=== PATIENT | female | born 1960 | race Caucasian/White ===

== ENCOUNTER → 2018-11-30 08:25 | Outpatient (CLI) | payer OTHER, SELFPAY ==
--- NOTE | 2018-11-30 | DI.RAD.S_ITS ---
PROCEDURE: XR HAND RT 2V INDICATIONS: bilateralHAND SWELLING TECHNIQUE: 2 views of the hand(s) acquired. COMPARISON: [facility], CR, XR HAND LT 2V, 11/30/2018, 8:52. FINDINGS: Bones: No fractures or dislocations. Carpal bones are normally aligned. No suspicious bony lesions. Minimal degenerative changes of the first through fifth interphalangeal joints. Soft tissues: No suspicious soft tissue calcifications. No radiopaque foreign body identified. IMPRESSION: No acute osseous abnormality of the right hand. Dictated by: Moiz Palomo M.D. on 12/01/2018 at 9:25 Approved by: Moiz Palomo M.D. on 12/01/2018 at 9:26
--- NOTE | 2018-11-30 | DI.RAD.S_ITS ---
PROCEDURE: XR HAND LT 2V INDICATIONS: bilateral HAND SWELLING TECHNIQUE: 2 views of the hand(s) acquired. COMPARISON: [facility], CR, XR HAND RT 2V, 11/30/2018, 8:52. FINDINGS: Bones: No fractures or dislocations. Carpal bones are normally aligned. No suspicious bony lesions. Minimal degenerative changes of the first through fifth interphalangeal joints and first carpometacarpal joint. Soft tissues: No suspicious soft tissue calcifications. No radiopaque foreign body. IMPRESSION: No acute osseous abnormality of the left hand. Dictated by: Moiz Palomo M.D. on 12/01/2018 at 9:23 Approved by: Moiz Palomo M.D. on 12/01/2018 at 9:25
[2018-11-30 08:41] LABS: Bacteria Urine None Seen; RBC Urine None Seen (0-5/HPF); WBC Urine None Seen (0-5/HPF)
[2018-11-30 09:21] LABS: Alanine Aminotransferase 28 IU/L (9-52); Albumin 4.5 g/dL (3.5-5.0); Albumin Globulin Ratio 1.4 (1.0-2.8); Alkaline Phosphatase 70 U/L (38-126); Aspartate Aminotransferase 30 IU/L (14-36); Bilirubin Total 0.5 mg/dL (0.2-1.3); Blood Urea Nitrogen 20 mg/dL (7-17); C-Reactive Protein Quant 0.6 mg/dL (<1.0); Calcium 9.3 mg/dL (8.4-10.2); Carbon Dioxide 27 mmol/L (22-32); Chloride 100 mmol/L (98-107); Estimated Glomerular Filt Rate > 60.0 mL/min (>60); Globulin 3.2 g/dL (1.7-4.1); Glucose 95 mg/dL (70-100); HEMOLYSIS < 15 (0-50); Potassium 3.9 mmol/L (3.4-5.1); Sodium 137 mmol/L (137-145); Total Protein 7.7 g/dL (6.3-8.2)
[2018-11-30 09:47] LABS: Rheumatoid Factor < 8.6 IU/mL (<12.0)
[2018-11-30 11:11] LABS: Appearance Urine UA CLEAR; Bilirubin Urine UA NEGATIVE (NEGATIVE); Color Urine UA YELLOW; Glucose Urine UA NEGATIVE (Negative); Ketones Urine UA NEGATIVE (NEGATIVE); Leukocyte Esterase Urine UA NEGATIVE (NEGATIVE); Nitrite Urine UA NEGATIVE (Negative); Occult Blood Urine UA NEGATIVE (Negative); Protein Urine UA NEGATIVE (Negative); Specific Gravity Urine UA <=1.005 (1.000-1.035); Urobilinogen Urine UA 0.2 E.U./dL (0.2)
[2018-11-30 11:20] LABS: Culture Indicated Urine Cult Not Indicated
[2018-11-30 17:25] LABS: TSH w/ Reflex to FT4 3.57 uIU/mL (0.47-4.68)
[2018-12-02 18:02] LABS: ANA Screen, IFA Negative (Negative)
== END ==
PROVIDERS: Family Provider Internal Medicine Hematology & Oncology; PCP Internal Medicine; Visit Provider Internal Medicine
DX: D47.3 Essential (hemorrhagic) thrombocythemia (principal); Z12.4 Encounter for screening for malignant neoplasm of cervix; M25.542 Pain in joints of left hand; R23.1 Pallor; R30.0 Dysuria; I10 Essential (primary) hypertension; R35.0 Frequency of micturition
CPT/HCPCS: 36415; 73120; 80053; 81001; 84443; 86038; 86140; 86200; 86430; 87086

== ENCOUNTER → 2018-12-02 15:51 | Outpatient (CLI) | payer OTHER, SELFPAY ==
[2018-12-02 18:00] LABS: Add Manual Diff / Slide Review NO; Basophils Absolute Auto 0 /uL (0-100); Eosinophils Absolute Auto 0 /uL (0-450); Eosinophils Percent Auto 0.9 % (2-4); Hematocrit 38.1 % (36-46); Hemoglobin 12.7 g/dL (12.0-16.0); Lymphocytes Absolute Auto 1300 /uL (1100-4500); Lymphocytes Percent Auto 27.7 % (25-40); Mean Corpuscular HGB Conc 33.4 % (30-36); Mean Corpuscular Hemoglobin 36.7 PG (26-34); Mean Corpuscular Volume 109.8 fL (80-100); Monocytes Absolute Auto 500 /uL (0-900); Monocytes Percent Auto 10.3 % (3-14); Neutrophils Absolute Auto 2700 /uL (1500-7000); Neutrophils Percent Auto 60.1 % (50-75); Platelet Count 463 X10^3/uL (150-400); Red Blood Cell Count 3.47 X10^6/uL (4.0-5.2); White Blood Cell Count 4.6 X10^3/uL (4.5-11.0)
== END ==
PROVIDERS: Family Provider Internal Medicine Hematology & Oncology; PCP Internal Medicine; Visit Provider Internal Medicine
DX: M25.542 Pain in joints of left hand (principal); D47.3 Essential (hemorrhagic) thrombocythemia; R30.0 Dysuria; I10 Essential (primary) hypertension; E03.9 Hypothyroidism, unspecified; R35.0 Frequency of micturition
CPT/HCPCS: 85025

== ENCOUNTER → 2019-01-08 16:00 | Outpatient (CLI) | payer OTHER, SELFPAY ==
[2019-01-08 17:49] LABS: Vitamin D 25 Hydroxy (D3) 43.5 ng/mL (30.0-100.0)
[2019-01-08 18:36] LABS: Folate 9.3 ng/mL (2.76-20.0); Vitamin B12 770 pg/mL (239-931)
[2019-01-11 00:36] LABS: Albumin 4.3 g/dL (3.8-4.8); Alpha 1 Globulin 0.3 g/dL (0.2-0.3); Alpha 2 Globulin 0.6 g/dL (0.5-0.9); Beta 1 Globulin 0.4 g/dL (0.4-0.6); Gamma Globulin 1.2 g/dL (0.8-1.7); Protein, Total 7.1 g/dL (6.1-8.1)
== END ==
PROVIDERS: Family Provider Internal Medicine Hematology & Oncology; PCP Internal Medicine; Visit Provider Internal Medicine
DX: Z86.39 Personal history of other endocrine, nutritional and metabolic disease (principal); E55.9 Vitamin D deficiency, unspecified; D75.89 Other specified diseases of blood and blood-forming organs; M79.2 Neuralgia and neuritis, unspecified
CPT/HCPCS: 36415; 82306; 82607; 82746; 84155; 84165

== ENCOUNTER → 2020-04-23 14:42 | Outpatient (ROUT) | payer OTHER, SELFPAY ==
[2020-04-23 14:53] LABS: Hemoglobin 13.3 g/dL (12.0-16.0); Mean Corpuscular Hemoglobin 36.4 PG (26-34); Mean Corpuscular Volume 106.9 fL (80-100); Platelet Count 524 X10^3/uL (150-400); Red Blood Cell Count 3.65 X10^6/uL (4.0-5.2); Red Cell Distribution Width 14.9 % (11.6-14.8); White Blood Cell Count 3.7 X10^3/uL (4.5-11.0)
[2020-04-23 15:09] LABS: Alanine Aminotransferase 28 IU/L (<35); Albumin 4.5 g/dL (3.5-5.0); Albumin Globulin Ratio 1.5 (1.0-2.8); Alkaline Phosphatase 77 U/L (38-126); Aspartate Aminotransferase 33 IU/L (14-36); BUN Creatinine Ratio 27.8 (6-22); Bilirubin Total 0.4 mg/dL (0.2-1.3); Blood Urea Nitrogen 22 mg/dL (7-17); Calcium 9.6 mg/dL (8.4-10.2); Carbon Dioxide 28 mmol/L (22-32); Chloride 102 mmol/L (98-107); Estimated Glomerular Filt Rate > 60.0 mL/min (>60); Glucose 123 mg/dL (80-110); HEMOLYSIS < 15 (0-50); Potassium 4.6 mmol/L (3.4-5.1); Sodium 141 mmol/L (137-145); Total Protein 7.5 g/dL (6.3-8.2)
[2020-04-23 15:11] LABS: Erythrocyte Sedimentation Rate 15 MM/HR (0-20)
[2020-04-23 15:15] LABS: Neutrophils Absolute Manual 2664 /uL (3000-5900); RBC Morphology Normal Morphology; Total Cells Counted 100
[2020-04-23 15:31] LABS: C-Reactive Protein Quant < 0.5 mg/dL (<1.0)
[2020-04-26 11:13] LABS: Vitamin B12 506 pg/mL (239-931)
[2020-04-29 16:32] LABS: Amylase 77 U/L (30-110); Lipase 135 U/L (23-300)
== END ==
PROVIDERS: Family Provider Internal Medicine Hematology & Oncology; PCP Internal Medicine; Visit Provider Internal Medicine
DX: R10.2 Pelvic and perineal pain (principal)
CPT/HCPCS: 80053; 82150; 82607; 83690; 85025; 85651; 86140; 87086

== ENCOUNTER → 2020-05-20 09:41 | Outpatient (CLI) | payer OTHER, SELFPAY ==
[2020-05-20 12:17] LABS: Alanine Aminotransferase 28 IU/L (<35); Albumin 4.5 g/dL (3.5-5.0); Albumin Globulin Ratio 1.4 (1.0-2.8); Alkaline Phosphatase 70 U/L (38-126); Amylase 80 U/L (30-110); Aspartate Aminotransferase 33 IU/L (14-36); BUN Creatinine Ratio 29.1 (6-22); Bilirubin Total 0.7 mg/dL (0.2-1.3); Blood Urea Nitrogen 23 mg/dL (7-17); Calcium 9.7 mg/dL (8.4-10.2); Carbon Dioxide 29 mmol/L (22-32); Chloride 102 mmol/L (98-107); Estimated Glomerular Filt Rate > 60.0 mL/min (>60); Globulin 3.2 g/dL (1.7-4.1); Glucose 86 mg/dL (80-110); HEMOLYSIS < 15 (0-50); Lipase 139 U/L (23-300); Potassium 5.1 mmol/L (3.4-5.1); Sodium 138 mmol/L (137-145); Total Protein 7.7 g/dL (6.3-8.2)
[2020-05-20 13:00] LABS: Vitamin B12 612 pg/mL (239-931)
== END ==
PROVIDERS: Family Provider Internal Medicine Hematology & Oncology; PCP Internal Medicine; Referring Provider Internal Medicine; Visit Provider Internal Medicine
DX: R53.83 Other fatigue (principal)
CPT/HCPCS: 36415; 80053; 82150; 82607; 83690

== ENCOUNTER → 2020-05-24 08:02 | Outpatient (CLI) | payer OTHER, SELFPAY ==
--- NOTE | 2020-05-24 | DI.MRI.S_ITS ---
PROCEDURE: MR LUMBAR SPINE WO CON INDICATIONS: Radiculopathy lumbosacral TECHNIQUE: Noncontrast sagittal T1 spin echo and T2 fast echo, sagittal STIR, axial T1 and T2 fast spin echo through the lumbar spine. In cases with scoliosis, additional coronal T2 fast spin echo may be performed. COMPARISON: None. FINDINGS: Image quality: Excellent. Alignment and Curvature: There is normal bony alignment. Bone Marrow: Mild reactive endplate changes noted adjacent to the L5-S1 disc. No acute vertebral body compression fractures. Spinal Cord: Conus medullaris terminates at the L1-L2 disc level. Visualized cord demonstrates normal signal and size. Paraspinous Soft Tissues: No paravertebral masses. L1-L2: Loss of disc signal and slight loss of disc height. Mild, diffuse disc bulge. No central stenosis. Small right foraminal disc protrusion. Mild right neural foraminal narrowing. No neural compression. L2-L3: Loss of disc signal and slight loss of disc height. Mild, diffuse disc bulge. No central stenosis. No neural foraminal narrowing. No neural compression. L3-L4: Loss of disc signal. Mild, diffuse disc bulge. Small right foraminal disc protrusion. Mild narrowing of the central canal. Moderate right and mild left neural foraminal narrowing. No neural compression. L4-L5: Loss of disc signal. Mild, diffuse disc bulge. Small left foraminal disc protrusion. Mild narrowing of the central canal. Mild left neural foraminal narrowing. No neural compression. L5-S1: Loss of disc signal. Mild, diffuse disc bulge. No central stenosis. Moderate to severe right and mild left neural foraminal narrowing with slight compression of the exiting right L5 nerve root. Fissure noted in the posterior annulus. IMPRESSION: 1. Multilevel degenerative disease. 2. Mild L3-L4 and L4-L5 central canal narrowing. 3. Moderate to severe right and mild left L5-S1 neural foraminal narrowing. Moderate right and mild left L3-L4 neural foraminal narrowing. Mild right L1-L2 neural foraminal narrowing. Mild left L4-L5 neural foraminal narrowing. 4. Slight compression of the exiting right L5 nerve root secondary to right L5-S1 neural foraminal narrowing. 5. L5-S1 disc annulus fissure. Dictated by: Lorraine Tidwell MD, PhD on 05/24/2020 at 13:58 Approved by: Lorraine Tidwell MD, PhD on 05/24/2020 at 14:22
--- NOTE | 2020-05-24 09:24 | DI.CT.S_ITS ---
PROCEDURE: CT ABDOMEN PELVIS W CON INDICATIONS: Pelvic and perineal pain TECHNIQUE: After the administration of oral and intravenous contrast, 5 mm thick sections acquired from the diaphragms to the symphysis. 5 mm thick coronal and sagittal reformats were performed. For radiation dose reduction, the following was used: automated exposure control, adjustment of mA and/or kV according to patient size. COMPARISON: [facility], CT, ABDOMEN/PELVIS WITH CONTRAST, 09/10/2009, 14:40. FINDINGS: Image quality: Excellent. ABDOMEN: Lung bases: Lung bases are clear. Heart size is normal. Solid organs: Liver is normal in size and enhancement. Gallbladder is unremarkable. Biliary system is non-dilated. Pancreas enhances normally. Spleen is normal in size and enhancement. No adrenal nodules. Kidneys are normal in size and enhancement, without hydronephrosis. Peritoneum and bowel: Stomach, and small bowel are unremarkable. The sigmoid and left colon are decompressed. There is probable mild diffuse wall thickening of this portion of the colon. No free fluid or air. Nodes and vessels: No retroperitoneal or mesenteric adenopathy. Aorta and inferior vena cava are normal in caliber. Miscellaneous: No ventral hernias. PELVIS: Genitourinary: Bladder wall thickness is normal. Miscellaneous: No inguinal hernias or adenopathy. Calcified uterine fibroid. Bones: No suspicious bony lesions. No vertebral body compression fractures. IMPRESSION: 1. The sigmoid and left colon are decompressed with probable mild diffuse wall thickening. Consider infectious versus inflammatory colitis. Direct visualization may be helpful. Dictated by: Neri Dangelo M.D. on 05/24/2020 at 9:41 Approved by: Neri Dangelo M.D. on 05/24/2020 at 9:46
== END ==
PROVIDERS: Family Provider Internal Medicine Hematology & Oncology; PCP Internal Medicine; Referring Provider Internal Medicine; Visit Provider Internal Medicine
DX: R10.2 Pelvic and perineal pain (principal); R10.12 Left upper quadrant pain; M51.16 Intervertebral disc disorders with radiculopathy, lumbar region; M48.07 Spinal stenosis, lumbosacral region; M48.061 Spinal stenosis, lumbar region without neurogenic claudication
CPT/HCPCS: 72148; 74177; Q9967

== ENCOUNTER → 2020-09-27 07:54 | Outpatient (CLI) | payer OTHER, SELFPAY ==
--- NOTE | 2020-09-27 07:58 | DI.US.S_ITS ---
PROCEDURE: US PELVIC COMPLETE INDICATIONS: LEFT LOWER QUADRANT PAIN TECHNIQUE: Real-time scanning was performed of the pelvic organs, with image documentation. Additional endovaginal scanning was necessary due to incomplete visualization of the adnexal and endometrial structures by transabdominal scanning. COMPARISON: [facility], , PELVIC COMPLETE, 03/20/2012, 15:19. FINDINGS: Uterus: Uterus is anteverted and normal in size at 6.3 x 3.2 x 2.0 cm. The endometrium measures 1.3 mm in combined thickness. Trace endometrial fluid. Calcified intramural fibroid measuring 1.9 x 1.3 x 0.8 cm. Ovaries: Right ovary not well visualized. Normal left ovary measuring 2.1 x 1.6 x 0.9 cm. Other: No pathologic free abdominal or pelvic fluid. IMPRESSION: 1. Trace endometrial fluid; otherwise the endometrial complex is normal in thickness. 2. Stable appearance of 1.9 cm calcified intramural fibroid. Dictated by: León Tejada [facility] Interpreted: Pauline Sandoval MD on 09/27/2020 at 9:20 Approved by: Pauline Sandoval M.D. on 09/27/2020 at 11:17
[2020-09-27 09:11] LABS: Add Manual Diff / Slide Review NO; Basophils Absolute Auto 200 /uL (0-100); Basophils Percent Auto 3.8 % (0-2); Eosinophils Absolute Auto 100 /uL (0-450); Eosinophils Percent Auto 2.1 % (2-4); Hematocrit 36.9 % (36-46); Hemoglobin 12.7 g/dL (12.0-16.0); Lymphocytes Absolute Auto 700 /uL (1100-4500); Lymphocytes Percent Auto 16.5 % (25-40); Mean Corpuscular HGB Conc 34.3 % (30-36); Mean Corpuscular Hemoglobin 35.5 PG (26-34); Mean Corpuscular Volume 103.4 fL (80-100); Monocytes Absolute Auto 400 /uL (0-900); Monocytes Percent Auto 8.5 % (3-14); Neutrophils Absolute Auto 2900 /uL (1500-7000); Neutrophils Percent Auto 69.1 % (50-75); Platelet Count 485 X10^3/uL (150-400); Red Blood Cell Count 3.57 X10^6/uL (4.0-5.2); Red Cell Distribution Width 15.6 % (11.6-14.8); White Blood Cell Count 4.2 X10^3/uL (4.5-11.0)
[2020-09-27 10:50] LABS: Alanine Aminotransferase 39 IU/L (<35); Albumin 4.5 g/dL (3.5-5.0); Albumin Globulin Ratio 1.5 (1.0-2.8); Alkaline Phosphatase 72 U/L (38-126); Aspartate Aminotransferase 41 IU/L (14-36); BUN Creatinine Ratio 30.4 (6-22); Bilirubin Total 0.4 mg/dL (0.2-1.3); Blood Urea Nitrogen 21 mg/dL (7-17); Calcium 9.4 mg/dL (8.4-10.2); Carbon Dioxide 30 mmol/L (22-32); Chloride 103 mmol/L (98-107); Cholesterol 189 mg/dL (140-199); Estimated Glomerular Filt Rate > 60.0 mL/min (>60); Glucose 93 mg/dL (80-110); HDL Cholesterol 40 mg/dL (40-60); HEMOLYSIS < 15 (0-50); LDL Cholesterol Calculated 119 mg/dL (<100); Potassium 3.9 mmol/L (3.4-5.1); Sodium 138 mmol/L (137-145); Total Protein 7.5 g/dL (6.3-8.2); Triglycerides 152 mg/dL (35-150)
[2020-09-27 11:10] LABS: TSH w/ Reflex to FT4 3.74 uIU/mL (0.47-4.68)
[2020-09-27 11:29] LABS: Cancer Antigen 125 < 5.5 U/mL (0-35)
[2020-09-28 10:57] LABS: Gamma Glutamyl Transpeptidase 28 U/L (12-43)
[2020-09-28 11:59] LABS: Folate > 20.0 ng/mL (2.76-20.0); Vitamin B12 736 pg/mL (239-931)
== END ==
PROVIDERS: Family Provider Internal Medicine Hematology & Oncology; PCP Internal Medicine; Referring Provider Physician Assistant; Visit Provider Physician Assistant
DX: R10.32 Left lower quadrant pain (principal); D25.1 Intramural leiomyoma of uterus; D47.3 Essential (hemorrhagic) thrombocythemia; E03.9 Hypothyroidism, unspecified; E78.2 Mixed hyperlipidemia; R14.0 Abdominal distension (gaseous)
CPT/HCPCS: 36415; 76830; 76856; 80053; 80061; 82607; 82746; 82977; 84443; 85025; 86304

== ENCOUNTER 2021-12-09 16:32 | Emergency (ER) | payer OTHER, SELFPAY ==
[2021-12-09 16:44] VITALS: BMI 26.6
--- NOTE | 2021-12-09 16:51 | DI.RAD.S_ITS ---
PROCEDURE: XR HAND RT MIN 3V INDICATIONS: SLAMMED RIGHT HAND IN CAR DOOR. TECHNIQUE: 3 views of the hand(s) acquired. COMPARISON: [facility], CR, XR HAND RT 2V, 11/30/2018, 8:52. FINDINGS: Bones: 2nd digit distal phalangeal fracture with moderate displacement. Carpal bones are normally aligned. No suspicious bony lesions. Soft tissues: No suspicious soft tissue calcifications. IMPRESSION: 2nd digit distal phalangeal fracture. Dictated by: Joe Benavides M.D. on 12/09/2021 at 17:10 Approved by: Joe Benavides M.D. on 12/09/2021 at 17:12
[2021-12-09] MEDS: HYDROCODONE/ACET 5/325 TABLET 1 TAB PO (16:54)
[2021-12-09] MEDS: PROPRANOLOL 10 MG TABLET PO (17:25)
--- NOTE | 2021-12-09 17:45 | PC.NURSE ---
Did not assess for cap refill do to trauma to nail bed, provider aware.
[2021-12-09] MEDS: LORazepam 0.5 MG TABLET 1 MG PO (17:49)
[2021-12-09] MEDS: LIDO 1%/SOD BICARB 8.4% (10ML) 10 ML SYRINGE INJ (17:50)
--- NOTE | 2021-12-09 17:54 | ED_ITS ---
HPI - Extremity Injury (Upper) <DEBORA Perez - Last Filed: 12/09/21 21:11> General Chief Complaint: Extremity Injury, Upper Stated Complaint: INDEX RIGHT FINGER SHUT ON CAR DOOR Time Seen by Provider: 12/09/21 16:50 Source: patient Mode of arrival: Ambulatory History of Present Illness HPI narrative: 61-year-old female presents to the emergency department with right 2nd digit injury after patient accidentally shot her right 2nd distal digit in the car door just prior to arrival. Patient denies taking any medication prior to arrival. She states that she has a history of anxiety and is having a panic attack. Patient endorses right 2nd digit finger tip pain, denies sensation changes, complains throbbing pain. She is left hand dominant. Patient states that she takes propanolol at home for her anxiety, she does not remember when her last tetanus vaccination was. Her laceration is below the fingernail and approximately 1.5 cm. Bleeding is controlled. Related Data Home Medications Medication Instructions Recorded Confirmed modafinil 200 mg tablet (Provigil) 200 mg PO QDAY #0 08/27/17 04/02/19 Previous Rx's Medication Instructions Recorded cephalexin 500 mg capsule 500 mg PO BID 5 Days #10 cap 12/09/21 hydrocodone 5 mg-acetaminophen 325 1 tab PO Q8H PRN #14 tab 12/09/21 mg tablet mupirocin 2 % topical ointment 1 applic TOPICAL BID #15 g 12/09/21 Allergies Allergy/AdvReac Type Severity Reaction Status Date / Time No Known Drug Allergies Allergy Verified 12/09/21 16:44 Review of Systems <DEBORA Perez - Last Filed: 12/09/21 21:11> Review of Systems Narrative: General: denies fever, chills, malaise, sweats, fatigue, patient endorses extreme anxiety Head/Neck: denies headache, neck pain, dizziness Eyes: denies visual changes, eye pain Cardio: denies chest pain, palpitations, edema Respiratory: denies dyspnea, cough, orthopnea GI: denies abdominal pain, nausea, vomiting, or diarrhea MSK: denies joint pain, muscle weakness Skin: denies rash, itching, right distal finger tip is bleeding from a laceration below the nail bed, bleeding is controlled with a pressure dressing Neuro: denies numbness, tingling Patient History <DEBORA Perez - Last Filed: 12/09/21 21:11> Medical History ADD (attention deficit disorder) Closed head injury (~2010) Essential thrombocythemia Excessive daytime sleepiness Insomnia, psychophysiological Obstructive sleep apnea Snoring Social History Smoking Status: Former smoker Smoking Status: Former smoker Substance Use Type: does not use Exam <DEBORA Perez - Last Filed: 12/09/21 21:11> Narrative Exam Narrative: Independently reviewed vitals signs and nursing notes. General: cooperative, comfortable, in no acute distress, well developed and well groomed Head: atraumatic, symmetrical facial expressions Neck: supple, atraumatic, without lymphadenopathy. Eyes: pupils equal round and reactive, EOMI, conjunctiva normal Nose: nares patent, no rhinorrhea Mouth/Throat: uvula midline, moist mucus membranes Cardiovascular: regular rate and rhythm, no peripheral edema, warm extremities Respiratory: normal effort, able to speak in complete sentences, no audible wheezing, stridor, or rales. No retractions or tachypnea. GI: abdomen soft, nontender to palpation, nondistended, no masses, no exquisite tenderness with exam, without guarding or rebound. MSK: moves all extremities, ambulatory w/steady gait, neurovascularly intact, no weakness Skin: brisk capillary refill, Neuro: normal speech and cognition, A&O x3, normal tone Psych: mental status is grossly normal, congruent mood, normal affect, pleasant and cooperative Initial Vital Signs Initial Vital Signs: Vital Signs Pulse Rate 65 12/09/21 19:13 Respiratory Rate 18 12/09/21 19:13 Blood Pressure 163/72 H 12/09/21 19:13 Pulse Oximetry 97 12/09/21 19:13 <Jacques Escobedo DO - Last Filed: 12/10/21 07:10> Initial Vital Signs Initial Vital Signs: Vital Signs Pulse Rate 65 12/09/21 19:13 Respiratory Rate 18 12/09/21 19:13 Blood Pressure 163/72 H 12/09/21 19:13 Pulse Oximetry 97 12/09/21 19:13 Procedures <DEBORA Perez - Last Filed: 12/09/21 21:11> Laceration Repair Laceration 1: Site: hand Side (If applicable): right Size (cm): 2 Description: linear and irregular Depth: simple, single layer and involves tendon Local Anesthetic: lidocaine 1%, bupivacaine 0.25% and with bicarb Amount of anesthesia used (mL): 7 Pre-repair: wound explored and irrigated extensively Skin layer closed with: nylon Skin layer suture size: 5-0 Number of sutures: 10 Technique: simple, interrupted (Patient's finger was numbed with a digital block, her finger was thoroughly cleaned and irrigated with normal saline, open fracture over the distal phalanx involving the proximal nailbed. Her fingernail was removed with a wedge, cleansed with normal saline, and reapplied with a chromic gut suture ) Subcutaneous layer closed with: chromic gut (Adele suture placed in the proximal nail to adhere the removed nail back on and to stent open the eponychium for new fingernail growtha) Subcutaneous layer suture size: 4-0 Number of sutures: 1 Orthopedic Splinting/Casting Injury #1: Side: right Upper Extremity Injury Location: finger Upper Extremity Immobilizer: aluminum form splint and finger (other) Post splinting neuro exam: intact and no change Post splinting vascular exam: intact Placed by: Nursing Course <Sulma Miller [facility] - Last Filed: 12/09/21 21:11> Orders Ordered: Discontinued Medications Hydrocodone Bitart/Acetaminophen (Hydrocodone/Acet 5/325 Tablet) 1 tab PO NOW ONE Stop: 12/09/21 16:51 Last Admin: 12/09/21 16:54 Dose: 1 tab Documented by: BRANDY Bacitracin (Bacitracin Oint 0.9 Gm Pckt) 1 applic TOP NOW ONE Stop: 12/09/21 18:56 Last Admin: 12/09/21 18:58 Dose: 1 applic Documented by: NEREYDA Diphtheria/Tetanus/Acell Pertussis (Tet,Diph,Pertuss(Acell),Vac/Pf 0.5 Ml Syringe) 0.5 ml IM .ONCE ONE Stop: 12/09/21 17:57 Last Admin: 12/09/21 18:10 Dose: Not Given Documented by: NEREYDA Cefazolin Sodium/Dextrose (Ancef) 10 mls @ 120 mls/hr IV NOW ONE Stop: 12/09/21 18:04 Last Infusion: 12/09/21 18:20 Dose: 0 mls/hr Documented by: Admin: 12/09/21 18:10 Dose: 120 mls/hr Documented by: NEREYDA Lidocaine/Sodium Bicarbonate (Lido 1%/Sod Bicarb 8.4% (10ml) 10 Ml Syringe) 10 ml INJ NOW ONE Stop: 12/09/21 17:30 Last Admin: 12/09/21 17:50 Dose: 10 ml Documented by: NEREYDA Lorazepam (Lorazepam 0.5 Mg Tablet) 1 mg PO NOW ONE Stop: 12/09/21 17:30 Last Admin: 12/09/21 17:49 Dose: 1 mg Documented by: NEREYDA Propranolol HCl (Propranolol 10 Mg Tablet) 10 mg PO NOW ONE Stop: 12/09/21 17:23 Last Admin: 12/09/21 17:25 Dose: 10 mg Documented by: BRANDY Vital Signs Vital signs: Vital Signs - 8 hr 12/09/21 19:13 Pulse Rate 65 Respiratory Rate 18 Blood Pressure 163/72 H Pulse Oximetry 97 <Jacques Escobedo DO - Last Filed: 12/10/21 07:10> Orders Ordered: Discontinued Medications Hydrocodone Bitart/Acetaminophen (Hydrocodone/Acet 5/325 Tablet) 1 tab PO NOW ONE Stop: 12/09/21 16:51 Last Admin: 12/09/21 16:54 Dose: 1 tab Documented by: BRANDY Bacitracin (Bacitracin Oint 0.9 Gm Pckt) 1 applic TOP NOW ONE Stop: 12/09/21 18:56 Last Admin: 12/09/21 18:58 Dose: 1 applic Documented by: NEREYDA Diphtheria/Tetanus/Acell Pertussis (Tet,Diph,Pertuss(Acell),Vac/Pf 0.5 Ml Syringe) 0.5 ml IM .ONCE ONE Stop: 12/09/21 17:57 Last Admin: 12/09/21 18:10 Dose: Not Given Documented by: NEREYDA Cefazolin Sodium/Dextrose (Ancef) 10 mls @ 120 mls/hr IV NOW ONE Stop: 12/09/21 18:04 Last Infusion: 12/09/21 18:20 Dose: 0 mls/hr Documented by: Admin: 12/09/21 18:10 Dose: 120 mls/hr Documented by: NEREYDA Lidocaine/Sodium Bicarbonate (Lido 1%/Sod Bicarb 8.4% (10ml) 10 Ml Syringe) 10 ml INJ NOW ONE Stop: 12/09/21 17:30 Last Admin: 12/09/21 17:50 Dose: 10 ml Documented by: NEREYDA Lorazepam (Lorazepam 0.5 Mg Tablet) 1 mg PO NOW ONE Stop: 12/09/21 17:30 Last Admin: 12/09/21 17:49 Dose: 1 mg Documented by: NEREYDA Propranolol HCl (Propranolol 10 Mg Tablet) 10 mg PO NOW ONE Stop: 12/09/21 17:23 Last Admin: 12/09/21 17:25 Dose: 10 mg Documented by: BRANDY Vital Signs Vital signs: Vital Signs - 8 hr 12/09/21 19:13 Pulse Rate 65 Respiratory Rate 18 Blood Pressure 163/72 H Pulse Oximetry 97 [facility] - Extremity Injury (Upper) <BUZZ PerezP - Last Filed: 12/09/21 21:11> Imaging Data Extremity x-ray #1: Radiologist's Impression: PROCEDURE:? XR HAND RT MIN 3V ? INDICATIONS:? SLAMMED RIGHT HAND IN CAR DOOR. ? TECHNIQUE:? 3 views of the hand(s) acquired.? ? COMPARISON:? [facility], , XR HAND RT 2V, 11/30/2018, 8:52. ? FINDINGS:? ? Bones:? 2nd digit distal phalangeal fracture with moderate displacement.? Carpal bones are normally aligned.? No suspicious bony lesions.? ? Soft tissues:? No suspicious soft tissue calcifications.? ? ? IMPRESSION:? 2nd digit distal phalangeal fracture. ? ? Dictated by: Joe Benavides M.D. on 12/09/2021 at 17:10 ? ? Approved by: Joe Benavides M.D. on 12/09/2021 at 17:12 ? [facility] Narrative Medical decision making narrative: To the emergency department with a complex laceration involving the nail bed of her right hand 2nd distal phalanx. Patient accidentally shut her finger in the car door just prior to arrival, she is left-hand dominant, sustained an open 2nd digit distal phalangeal fracture with a 2 cm laceration at the base of the nailbed. The fingernail base was on the exterior, her fingernail was removed, wound was irrigated and cleansed with normal saline after a digital block with lidocaine buffered with sodium bicarb. Patient tolerated this well with a high level of anxiety. She has anxiety at baseline, she was treated with propanolol and Ativan for her acute anxiety and hydrocodone for pain. Her tetanus is up-to-date, states it was within last 3 years. She was given Ancef via IV, consultation with Dr. Marcial ariza regarding her distal phalanx fracture with moderate displacement. After fingernail was removed and reattached at the proximal base with a dissolvable suture, finger was in better alignment, complex laceration was repaired with 5 0 Ethilon patient received 10 sutures. One dissolvable suture was placed in the proximal nailbed to hold the fingernail on. Finger was splinted in a metal finger splint, Telfa and antibiotic ointment. Patient is appropriate and amenable to discharge home. Vital signs are stable on repeat examination is unremarkable. Patient has been informed of results. Patient has been given strict return to ER precautions for any new or worsening symptoms. Patient understands to follow up closely with outpatient providers as instructed. Patient understands plan and agrees to discharge home. All questions and concerns answered at this time. Discharge Plan Departure Patient Disposition: Home Clinical Impression: Open fracture of distal phalanx of right hand Laceration of finger with damage to nail Qualifiers: Encounter type: initial encounter Finger: index finger Foreign body presence: without foreign body Laterality: right Qualified Code(s): S61.310A - Laceration without foreign body of right index finger with damage to nail, initial encounter Activity Restrictions/Additional Instructions: *You have been diagnosed with a right hand 2nd digit open fracture of the distal phalanx with a 2 cm laceration involving the nail bed. This was repaired with 10 sutures, please keep your finger in a finger splint, keep your wound covered with a Band-Aid and antibiotic ointment and change the dressing twice a day. Please avoid getting any better to in this wound especially because it is as deep as it is. Please use topical antibiotic ointment, keep it covered with at minimum a Band-Aid; it might be oozy for the next 1-2 days. Please call [facility] and make an appointment for follow-up. Please have your sutures removed in 10 days, the 1 holding the fingernail on is dissolvable and does not need to be removed although it is okay if they cut it. *What to do: *Please continue to take your regular medications as directed. [ x] New medication prescriptions sent to your pharmacy: [ [facility]] [ ] New medication written as a paper prescription [ ] No new medications given *Please follow up with your primary care provider in 2-3 days, call for an appointment. Let them know you were seen in the Emergency Department and that we asked that you be seen for follow-up. We will electronically transmit a record of today's note if your PCP is in our system *If you do not have a primary care provider please contact [phone] to establish care with one of the [facility] primary care providers. *Return to Emergency Department if you should have any new, worsening or concerning symptoms, such as [fever greater than 101F, chills, worsening pain, persistent vomiting or other bothersome symptoms] Prescriptions: New cephalexin 500 mg capsule 500 mg PO BID 5 Days Qty: 10 0RF hydrocodone-acetaminophen 5-325 mg tablet 1 tab PO Q8H PRN (Reason: pain) Qty: 14 0RF mupirocin 2 % ointment 1 applic topical BID Qty: 15 0RF No Action modafinil [Provigil] 200 MG tablet 200 mg PO QDAY Qty: 0 0RF Referrals: Shana Rojas MD [Primary Care Provider] - Jonas Ceja MD [Physician] - 3-5 days <Jacques Escobedo DO - Last Filed: 12/10/21 07:10> [facility] Dr escobedo: I did evaluate the patient with the APC. After adequate digital block was obtained the nail was removed and I placed 1 stitch in order to approximate the wound. The rest of the wound was closed by a PC along with splint placement.
[2021-12-09] MEDS: CEFAZOLIN 10 ML IV (18:10)
[2021-12-09] MEDS: BACITRACIN OINT 0.9 GM PCKT 1 APPLIC TOP (18:58)
[2021-12-09 19:13] VITALS: BP 163/72; PULSE 65; RESP 18; O2SAT 97
== END 2021-12-09 19:16 | disposition home or self-care (01) ==
PROVIDERS: Emergency Provider Nurse Practitioner Critical Care Medicine; Family Provider Internal Medicine Hematology & Oncology; PCP Internal Medicine
DX: S62.630A Displaced fracture of distal phalanx of right index finger, initial encounter for closed fracture (principal); S61.310A Laceration without foreign body of right index finger with damage to nail, initial encounter; W23.0XXA Caught, crushed, jammed, or pinched between moving objects, initial encounter
CPT/HCPCS: 12001; 29130; 73130; 96374; 99284; J0690

== ENCOUNTER 2023-09-08 16:56 | Emergency (ER) | payer OTHER, SELFPAY ==
[2023-09-08] VITALS (54 sets, daily range): BP systolic 127–225; BP diastolic 58–113; PULSE 90–120; RESP 14–28; TEMP 36.9; O2SAT 93–100; BMI 26.2
--- NOTE | 2023-09-08 17:04 | DI.RAD.S_ITS ---
PROCEDURE: XR CHEST 1V INDICATIONS: Shortness of breath TECHNIQUE: One view of the chest was acquired. COMPARISON: None. FINDINGS: Surgical changes and devices: None. Lungs and pleura: Lungs are clear. No pleural effusions or pneumothorax. Mediastinum: Mediastinal contours appear normal. Heart size is normal. Bones and chest wall: No suspicious bony lesions. Overlying soft tissues appear unremarkable. IMPRESSION: No acute cardiopulmonary abnormality is seen. Approved by: Israel Stratton M.D. on 09/08/2023 at 17:52
--- NOTE | 2023-09-08 17:18 | ED.SOB ---
HPI - SOB/Dyspnea <Mona Anaya MD - Last Filed: 09/08/23 18:46> General Chief Complaint: Shortness of Breath/Dyspnea Stated Complaint: migraine, racing heart, dizziness, sob Time Seen by Provider: 09/08/23 17:08 Source: patient Mode of arrival: Ambulatory History of Present Illness HPI Narrative: 63-year-old female with history of essential thrombocytosis, hypertension, hyperlipidemia presents by private vehicle from home for several hours of heart pounding, shortness of breath, migraine headache. Symptoms began while she was shoveling sod in the yard. She tried to sit down and rest, but her symptoms intensified and she decided to present for evaluation. Noted to be extremely hypertensive in triage. Patient states that she has been trying to set up a primary appointment to manage her blood pressure, she does not currently take any medications for hypertension. She states that she infrequently checks her blood pressures at home, however they usually range between 120 and 150 systolic Related Data Home Medications Medication Instructions Recorded Confirmed desonide 0.05 % topical ointment 1 applic topical 02/09/23 02/09/23 fluoxetine 10 mg capsule 10 mg PO 02/09/23 02/09/23 hydroxyurea 500 mg capsule 500 mg PO 02/09/23 02/09/23 levothyroxine 50 mcg tablet 50 mcg PO 02/09/23 02/09/23 methylphenidate HCl 27 mg 27 mg PO 02/09/23 02/09/23 tablet,extended release 24 hr propranolol 10 mg tablet 20 mg PO 02/09/23 02/09/23 tizanidine 4 mg tablet 4 mg PO 02/09/23 02/09/23 trazodone 50 mg tablet 50 mg PO 02/09/23 02/09/23 Allergies Allergy/AdvReac Type Severity Reaction Status Date / Time No Known Drug Allergies Allergy Verified 09/08/23 17:10 Review of Systems <Mona Anaya MD - Last Filed: 09/08/23 18:46> Review of Systems Narrative: Negative except as noted above Patient History <Mona Anaya MD - Last Filed: 09/08/23 18:46> Medical History Insomnia, psychophysiological Snoring Excessive daytime sleepiness ADD (attention deficit disorder) Closed head injury (~2010) Obstructive sleep apnea Essential thrombocythemia Social History Smoking Status: Former smoker Smoking Status: Former smoker Substance Use Type: does not use Exam <Mona Anaya MD - Last Filed: 09/08/23 18:46> Initial Vital Signs Initial Vital Signs: Vital Signs Temperature 98.4 F 09/08/23 17:01 Pulse Rate 106 H 09/08/23 17:01 Respiratory Rate 17 09/08/23 17:01 Blood Pressure 222/113 H 09/08/23 17:01 Pulse Oximetry 99 09/08/23 17:01 Oxygen Delivery Method Room Air 09/08/23 17:01 Const: Awake, alert, in pain Eyes: PERRL, EOMI, conjunctiva normal ENT: Atraumatic, dentition normal, mucous membranes moist Cardiac: regular rate, regular rhythm, bounding pulse RESP: unlabored, clear bilaterally, no wheezing GI: Atraumatic, soft, nontender MSK: Atraumatic, full range of motion, pulses equal, no edema Skin: Warm, Dry, intact, no rashes Neuro: AO x3, CN II-XII grossly intact, moves all extremities Psych: Appropriate for given condition <Jacques Escobedo DO - Last Filed: 09/09/23 01:38> Initial Vital Signs Initial Vital Signs: Vital Signs Temperature 98.4 F 09/08/23 17:01 Pulse Rate 106 H 09/08/23 17:01 Respiratory Rate 17 09/08/23 17:01 Blood Pressure 222/113 H 09/08/23 17:01 Pulse Oximetry 99 09/08/23 17:01 Oxygen Delivery Method Room Air 09/08/23 17:01 Course <Mona Anaya MD - Last Filed: 09/08/23 18:46> Orders Ordered: ED Orders 09/08/23 17:04 XR chest 1V Stat EKG-12 Lead Stat Measure peak expiratory flow ONCE RT Consult Eval and Treat NOW 09/08/23 17:10 Respiratory Panel (Film Array) Stat 09/08/23 17:13 Complete Blood Count AUTO DIFF Stat Comprehensive Metabolic Panel Stat Lactate (Lactic Acid) Stat NT-proBNP (BNP-Adult 18+) Stat PTT Partial Thromboplastin Pro Q6H Prothrombin Time INR Stat Troponin I Stat 09/08/23 17:18 CT head/brain wo con Stat 09/08/23 18:15 CT angio chest PE protocol Stat CT angio head and neck Stat 09/08/23 18:21 EKG-12 Lead Stat 09/08/23 19:06 Troponin & CK Cardiac Panel Stat 09/08/23 20:41 Consult After Hours PICC Line RN Stat 09/08/23 23:36 Troponin & CK Cardiac Panel Stat 09/09/23 01:12 PTT Partial Thromboplastin Pro Q6H 09/09/23 07:45 Hemoglobin and Hematocrit DAILY PTT Partial Thromboplastin Pro Q6H Platelet Count DAILY 09/09/23 13:45 PTT Partial Thromboplastin Pro Q6H 09/10/23 05:00 Hemoglobin and Hematocrit DAILY Platelet Count DAILY Nicardipine HCl 25 mg/ Sodium (Chloride) 250 mls @ 50 mls/hr IV TITRATE SHIRLEY; Protocol Last Titration: 09/09/23 00:30 Dose: 0 mg/hr, 0 mls/hr Documented By: Titration: 09/08/23 21:47 Dose: 2.5 mg/hr, 25 mls/hr Documented By: Titration: 09/08/23 20:21 Dose: 0 mg/hr, 0 mls/hr Documented By: Titration: 09/08/23 20:08 Dose: 2.5 mg/hr, 25 mls/hr Documented By: Admin: 09/08/23 19:20 Dose: 5 mg/hr, 50 mls/hr Documented By: JOSHUA Heparin Sodium/Dextrose (Heparin Drip) 25,000 unit in 500 mls @ 17.2 mls/hr IV CONT SHIRLEY; Protocol Last Admin: 09/08/23 20:31 Dose: 12 units/kg/hr, 17.2 mls/hr Documented By: JOSHUA Co-signed By: RL Trazodone HCl (Trazodone 50 Mg Tablet) 50 mg PO BEDTIME SHIRLEY Last Admin: 09/08/23 23:08 Dose: 50 mg Documented By: JOSHUA Discontinued Medications Aspirin (Aspirin 81 Mg Chew Tab) 324 mg PO NOW ONE Stop: 09/08/23 18:23 Last Admin: 09/08/23 18:26 Dose: 324 mg Documented By: SPF Diphenhydramine HCl (Diphenhydramine 50 Mg/Ml Vial) 50 mg IV NOW ONE Stop: 09/08/23 17:18 Last Admin: 09/08/23 18:02 Dose: 50 mg Documented By: ONDINA Heparin Sodium (Porcine) (Heparin 5,000 Unit/Ml Vial) 4,300 unit 60 unit/kg (4300 unit) IV NOW ONE Stop: 09/08/23 19:43 Last Admin: 09/08/23 20:29 Dose: 4,300 unit Documented By: JOSHUA Hydralazine HCl (Hydralazine 20 Mg/Ml Vial) 20 mg IV NOW ONE Stop: 09/08/23 17:18 Last Admin: 09/08/23 17:29 Dose: 20 mg Documented By: ALEXX Hydromorphone HCl (Hydromorphone 0.5 Mg Inj) 0.5 mg IV NOW ONE Stop: 09/08/23 18:21 Last Admin: 09/08/23 18:27 Dose: 0.5 mg Documented By: ONDINA Metoclopramide HCl (Metoclopramide 10 Mg/2 Ml Inj) 10 mg IV NOW ONE Stop: 09/08/23 17:18 Last Admin: 09/08/23 17:29 Dose: 10 mg Documented By: ALEXX Vital Signs Vital signs: Vital Signs - 8 hr 09/08/23 17:40 09/08/23 17:40 09/08/23 17:54 Pulse Rate 96 H 95 H Respiratory Rate 20 24 Blood Pressure 169/84 H Pulse Oximetry 99 Oxygen Delivery Method Room Air 09/08/23 17:55 09/08/23 17:55 09/08/23 18:00 Pulse Rate 97 H Respiratory Rate 21 Blood Pressure 159/71 H 179/100 H Pulse Oximetry 98 Oxygen Delivery Method 09/08/23 18:00 09/08/23 18:10 09/08/23 18:10 Pulse Rate 98 H 100 H Respiratory Rate 21 20 Blood Pressure 197/90 H Pulse Oximetry 100 99 Oxygen Delivery Method Room Air 09/08/23 18:13 09/08/23 18:20 09/08/23 18:20 Pulse Rate 92 H 97 H Respiratory Rate 17 Blood Pressure 197/90 H 182/73 H Pulse Oximetry 99 Oxygen Delivery Method Room Air 09/08/23 18:30 09/08/23 18:30 09/08/23 18:54 Pulse Rate 98 H 101 H Respiratory Rate 23 15 Blood Pressure 182/86 H Pulse Oximetry Oxygen Delivery Method 09/08/23 18:55 09/08/23 18:55 09/08/23 19:00 Pulse Rate 100 H Respiratory Rate 19 Blood Pressure 197/80 H 198/88 H Pulse Oximetry 98 Oxygen Delivery Method 09/08/23 19:00 09/08/23 19:15 09/08/23 19:15 Pulse Rate 97 H 108 H Respiratory Rate 17 22 Blood Pressure 194/83 H Pulse Oximetry 98 Oxygen Delivery Method 09/08/23 19:20 09/08/23 19:20 09/08/23 19:30 Pulse Rate 100 H Respiratory Rate 28 H Blood Pressure 183/84 H 171/69 H Pulse Oximetry 98 Oxygen Delivery Method Room Air 09/08/23 19:30 09/08/23 19:40 09/08/23 19:40 Pulse Rate 101 H 107 H Respiratory Rate 22 25 H Blood Pressure 160/73 H Pulse Oximetry 97 97 Oxygen Delivery Method Room Air Room Air 09/08/23 19:50 09/08/23 20:00 09/08/23 20:06 Pulse Rate 118 H 114 H Respiratory Rate 24 23 Blood Pressure 133/58 L Pulse Oximetry 97 97 Oxygen Delivery Method 09/08/23 20:06 09/08/23 20:10 09/08/23 20:11 Pulse Rate 116 H 117 H 117 H Respiratory Rate 23 21 22 Blood Pressure Pulse Oximetry 94 96 96 Oxygen Delivery Method 09/08/23 20:11 09/08/23 20:20 09/08/23 20:20 Pulse Rate 120 H Respiratory Rate 20 Blood Pressure 131/58 L 127/59 L Pulse Oximetry 96 Oxygen Delivery Method 09/08/23 20:30 09/08/23 20:30 09/08/23 20:40 Pulse Rate 110 H Respiratory Rate 21 Blood Pressure 134/64 133/70 Pulse Oximetry 96 Oxygen Delivery Method 09/08/23 20:40 09/08/23 20:50 09/08/23 21:00 Pulse Rate 111 H 109 H 105 H Respiratory Rate 25 H 23 24 Blood Pressure Pulse Oximetry 96 97 97 Oxygen Delivery Method Room Air Room Air 09/08/23 21:03 09/08/23 21:03 09/08/23 21:10 Pulse Rate 104 H 103 H Respiratory Rate 27 H 24 Blood Pressure 159/81 H Pulse Oximetry 97 96 Oxygen Delivery Method Room Air 09/08/23 21:20 09/08/23 21:30 09/08/23 21:31 Pulse Rate 99 H 98 H Respiratory Rate 20 14 Blood Pressure 193/91 H Pulse Oximetry 96 Oxygen Delivery Method Room Air 09/08/23 21:31 09/08/23 21:40 09/08/23 21:40 Pulse Rate 100 H 100 H Respiratory Rate 22 18 Blood Pressure 192/84 H Pulse Oximetry Oxygen Delivery Method 09/08/23 21:50 09/08/23 21:50 09/08/23 22:00 Pulse Rate 93 H Respiratory Rate 19 Blood Pressure 183/91 H 171/82 H Pulse Oximetry 98 Oxygen Delivery Method Room Air 09/08/23 22:00 09/08/23 22:10 09/08/23 22:10 Pulse Rate 97 H 100 H Respiratory Rate 28 H 16 Blood Pressure 176/84 H Pulse Oximetry 98 96 Oxygen Delivery Method Room Air Room Air 09/08/23 22:20 09/08/23 22:20 09/08/23 22:30 Pulse Rate 99 H 103 H Respiratory Rate 22 23 Blood Pressure 166/82 H Pulse Oximetry 97 96 Oxygen Delivery Method Room Air Room Air 09/08/23 22:30 09/08/23 22:40 09/08/23 22:40 Pulse Rate 104 H Respiratory Rate 27 H Blood Pressure 174/82 H 163/76 H Pulse Oximetry 96 Oxygen Delivery Method Room Air 09/08/23 22:50 09/08/23 22:50 09/08/23 23:00 Pulse Rate 97 H Respiratory Rate 25 H Blood Pressure 162/78 H 161/77 H Pulse Oximetry 97 Oxygen Delivery Method Room Air 09/08/23 23:00 09/08/23 23:10 09/08/23 23:10 Pulse Rate 98 H 100 H Respiratory Rate 20 22 Blood Pressure 154/75 H Pulse Oximetry 97 95 Oxygen Delivery Method Room Air Room Air 09/08/23 23:15 09/08/23 23:15 09/08/23 23:20 Pulse Rate 95 H 97 H Respiratory Rate 20 19 Blood Pressure 169/79 H Pulse Oximetry 96 95 Oxygen Delivery Method 09/08/23 23:30 09/08/23 23:30 09/08/23 23:40 Pulse Rate 99 H 100 H Respiratory Rate 18 16 Blood Pressure 153/64 H Pulse Oximetry 94 94 Oxygen Delivery Method 09/08/23 23:45 02/10/24 23:45 09/08/23 23:50 Pulse Rate 100 H 102 H Respiratory Rate 19 17 Blood Pressure 150/68 H Pulse Oximetry 93 93 Oxygen Delivery Method Room Air 09/09/23 00:00 09/09/23 00:00 09/09/23 00:10 Pulse Rate 101 H 101 H Respiratory Rate 17 17 Blood Pressure 139/63 Pulse Oximetry 93 94 Oxygen Delivery Method Room Air 09/09/23 00:15 09/09/23 00:15 09/09/23 00:20 Pulse Rate 101 H 100 H Respiratory Rate 16 13 Blood Pressure 129/59 L Pulse Oximetry 94 94 Oxygen Delivery Method Room Air 09/09/23 00:30 09/09/23 00:30 09/09/23 00:40 Pulse Rate 100 H 100 H Respiratory Rate 14 15 Blood Pressure 134/63 Pulse Oximetry 95 94 Oxygen Delivery Method Room Air 09/09/23 00:45 09/09/23 00:45 09/09/23 00:50 Pulse Rate 100 H 101 H Respiratory Rate 14 16 Blood Pressure 131/63 Pulse Oximetry 94 95 Oxygen Delivery Method Room Air 09/09/23 01:00 09/09/23 01:00 09/09/23 01:10 Pulse Rate 100 H 99 H Respiratory Rate 16 18 Blood Pressure 134/66 Pulse Oximetry 94 95 Oxygen Delivery Method Room Air 09/09/23 01:15 09/09/23 01:15 09/09/23 01:20 Pulse Rate 97 H 94 H Respiratory Rate 14 15 Blood Pressure 137/68 Pulse Oximetry 95 95 Oxygen Delivery Method Room Air Room Air 09/09/23 01:30 09/09/23 01:30 Pulse Rate 94 H Respiratory Rate 15 Blood Pressure 134/69 Pulse Oximetry 95 Oxygen Delivery Method <Jacques Escobedo DO - Last Filed: 09/09/23 01:38> Orders Ordered: ED Orders 09/08/23 17:04 XR chest 1V Stat EKG-12 Lead Stat Measure peak expiratory flow ONCE RT Consult Eval and Treat NOW 09/08/23 17:10 Respiratory Panel (Film Array) Stat 09/08/23 17:13 Complete Blood Count AUTO DIFF Stat Comprehensive Metabolic Panel Stat Lactate (Lactic Acid) Stat NT-proBNP (BNP-Adult 18+) Stat PTT Partial Thromboplastin Pro Q6H Prothrombin Time INR Stat Troponin I Stat 09/08/23 17:18 CT head/brain wo con Stat 09/08/23 18:15 CT angio chest PE protocol Stat CT angio head and neck Stat 09/08/23 18:21 EKG-12 Lead Stat 09/08/23 19:06 Troponin & CK Cardiac Panel Stat 09/08/23 20:41 Consult After Hours PICC Line RN Stat 09/08/23 23:36 Troponin & CK Cardiac Panel Stat 09/09/23 01:12 PTT Partial Thromboplastin Pro Q6H 09/09/23 07:45 Hemoglobin and Hematocrit DAILY PTT Partial Thromboplastin Pro Q6H Platelet Count DAILY 09/09/23 13:45 PTT Partial Thromboplastin Pro Q6H 09/10/23 05:00 Hemoglobin and Hematocrit DAILY Platelet Count DAILY Nicardipine HCl 25 mg/ Sodium (Chloride) 250 mls @ 50 mls/hr IV TITRATE SHIRLEY; Protocol Last Titration: 09/09/23 00:30 Dose: 0 mg/hr, 0 mls/hr Documented By: Titration: 09/08/23 21:47 Dose: 2.5 mg/hr, 25 mls/hr Documented By: Titration: 09/08/23 20:21 Dose: 0 mg/hr, 0 mls/hr Documented By: Titration: 09/08/23 20:08 Dose: 2.5 mg/hr, 25 mls/hr Documented By: Admin: 09/08/23 19:20 Dose: 5 mg/hr, 50 mls/hr Documented By: JOSHUA Heparin Sodium/Dextrose (Heparin Drip) 25,000 unit in 500 mls @ 17.2 mls/hr IV CONT SHIRLEY; Protocol Last Admin: 09/08/23 20:31 Dose: 12 units/kg/hr, 17.2 mls/hr Documented By: JOSHUA Co-signed By: RL Trazodone HCl (Trazodone 50 Mg Tablet) 50 mg PO BEDTIME SHIRLEY Last Admin: 09/08/23 23:08 Dose: 50 mg Documented By: SB Discontinued Medications Aspirin (Aspirin 81 Mg Chew Tab) 324 mg PO NOW ONE Stop: 09/08/23 18:23 Last Admin: 09/08/23 18:26 Dose: 324 mg Documented By: SPF Diphenhydramine HCl (Diphenhydramine 50 Mg/Ml Vial) 50 mg IV NOW ONE Stop: 09/08/23 17:18 Last Admin: 09/08/23 18:02 Dose: 50 mg Documented By: ONDINA Heparin Sodium (Porcine) (Heparin 5,000 Unit/Ml Vial) 4,300 unit 60 unit/kg (4300 unit) IV NOW ONE Stop: 09/08/23 19:43 Last Admin: 09/08/23 20:29 Dose: 4,300 unit Documented By: JOSHUA Hydralazine HCl (Hydralazine 20 Mg/Ml Vial) 20 mg IV NOW ONE Stop: 09/08/23 17:18 Last Admin: 09/08/23 17:29 Dose: 20 mg Documented By: ALEXX Hydromorphone HCl (Hydromorphone 0.5 Mg Inj) 0.5 mg IV NOW ONE Stop: 09/08/23 18:21 Last Admin: 09/08/23 18:27 Dose: 0.5 mg Documented By: ONDINA Metoclopramide HCl (Metoclopramide 10 Mg/2 Ml Inj) 10 mg IV NOW ONE Stop: 09/08/23 17:18 Last Admin: 09/08/23 17:29 Dose: 10 mg Documented By: ALEXX Vital Signs Vital signs: Vital Signs - 8 hr 09/08/23 17:40 09/08/23 17:40 09/08/23 17:54 Pulse Rate 96 H 95 H Respiratory Rate 20 24 Blood Pressure 169/84 H Pulse Oximetry 99 Oxygen Delivery Method Room Air 09/08/23 17:55 09/08/23 17:55 09/08/23 18:00 Pulse Rate 97 H Respiratory Rate 21 Blood Pressure 159/71 H 179/100 H Pulse Oximetry 98 Oxygen Delivery Method 09/08/23 18:00 09/08/23 18:10 09/08/23 18:10 Pulse Rate 98 H 100 H Respiratory Rate 21 20 Blood Pressure 197/90 H Pulse Oximetry 100 99 Oxygen Delivery Method Room Air 09/08/23 18:13 09/08/23 18:20 09/08/23 18:20 Pulse Rate 92 H 97 H Respiratory Rate 17 Blood Pressure 197/90 H 182/73 H Pulse Oximetry 99 Oxygen Delivery Method Room Air 09/08/23 18:30 09/08/23 18:30 09/08/23 18:54 Pulse Rate 98 H 101 H Respiratory Rate 23 15 Blood Pressure 182/86 H Pulse Oximetry Oxygen Delivery Method 09/08/23 18:55 09/08/23 18:55 09/08/23 19:00 Pulse Rate 100 H Respiratory Rate 19 Blood Pressure 197/80 H 198/88 H Pulse Oximetry 98 Oxygen Delivery Method 09/08/23 19:00 09/08/23 19:15 09/08/23 19:15 Pulse Rate 97 H 108 H Respiratory Rate 17 22 Blood Pressure 194/83 H Pulse Oximetry 98 Oxygen Delivery Method 09/08/23 19:20 09/08/23 19:20 09/08/23 19:30 Pulse Rate 100 H Respiratory Rate 28 H Blood Pressure 183/84 H 171/69 H Pulse Oximetry 98 Oxygen Delivery Method Room Air 09/08/23 19:30 09/08/23 19:40 09/08/23 19:40 Pulse Rate 101 H 107 H Respiratory Rate 22 25 H Blood Pressure 160/73 H Pulse Oximetry 97 97 Oxygen Delivery Method Room Air Room Air 09/08/23 19:50 09/08/23 20:00 09/08/23 20:06 Pulse Rate 118 H 114 H Respiratory Rate 24 23 Blood Pressure 133/58 L Pulse Oximetry 97 97 Oxygen Delivery Method 09/08/23 20:06 09/08/23 20:10 09/08/23 20:11 Pulse Rate 116 H 117 H 117 H Respiratory Rate 23 21 22 Blood Pressure Pulse Oximetry 94 96 96 Oxygen Delivery Method 09/08/23 20:11 09/08/23 20:20 09/08/23 20:20 Pulse Rate 120 H Respiratory Rate 20 Blood Pressure 131/58 L 127/59 L Pulse Oximetry 96 Oxygen Delivery Method 09/08/23 20:30 09/08/23 20:30 09/08/23 20:40 Pulse Rate 110 H Respiratory Rate 21 Blood Pressure 134/64 133/70 Pulse Oximetry 96 Oxygen Delivery Method 09/08/23 20:40 09/08/23 20:50 09/08/23 21:00 Pulse Rate 111 H 109 H 105 H Respiratory Rate 25 H 23 24 Blood Pressure Pulse Oximetry 96 97 97 Oxygen Delivery Method Room Air Room Air 09/08/23 21:03 09/08/23 21:03 09/08/23 21:10 Pulse Rate 104 H 103 H Respiratory Rate 27 H 24 Blood Pressure 159/81 H Pulse Oximetry 97 96 Oxygen Delivery Method Room Air 09/08/23 21:20 09/08/23 21:30 09/08/23 21:31 Pulse Rate 99 H 98 H Respiratory Rate 20 14 Blood Pressure 193/91 H Pulse Oximetry 96 Oxygen Delivery Method Room Air 09/08/23 21:31 09/08/23 21:40 09/08/23 21:40 Pulse Rate 100 H 100 H Respiratory Rate 22 18 Blood Pressure 192/84 H Pulse Oximetry Oxygen Delivery Method 09/08/23 21:50 09/08/23 21:50 09/08/23 22:00 Pulse Rate 93 H Respiratory Rate 19 Blood Pressure 183/91 H 171/82 H Pulse Oximetry 98 Oxygen Delivery Method Room Air 09/08/23 22:00 09/08/23 22:10 09/08/23 22:10 Pulse Rate 97 H 100 H Respiratory Rate 28 H 16 Blood Pressure 176/84 H Pulse Oximetry 98 96 Oxygen Delivery Method Room Air Room Air 09/08/23 22:20 09/08/23 22:20 09/08/23 22:30 Pulse Rate 99 H 103 H Respiratory Rate 22 23 Blood Pressure 166/82 H Pulse Oximetry 97 96 Oxygen Delivery Method Room Air Room Air 09/08/23 22:30 09/08/23 22:40 09/08/23 22:40 Pulse Rate 104 H Respiratory Rate 27 H Blood Pressure 174/82 H 163/76 H Pulse Oximetry 96 Oxygen Delivery Method Room Air 09/08/23 22:50 09/08/23 22:50 09/08/23 23:00 Pulse Rate 97 H Respiratory Rate 25 H Blood Pressure 162/78 H 161/77 H Pulse Oximetry 97 Oxygen Delivery Method Room Air 09/08/23 23:00 09/08/23 23:10 09/08/23 23:10 Pulse Rate 98 H 100 H Respiratory Rate 20 22 Blood Pressure 154/75 H Pulse Oximetry 97 95 Oxygen Delivery Method Room Air Room Air 09/08/23 23:15 09/08/23 23:15 09/08/23 23:20 Pulse Rate 95 H 97 H Respiratory Rate 20 19 Blood Pressure 169/79 H Pulse Oximetry 96 95 Oxygen Delivery Method 09/08/23 23:30 09/08/23 23:30 09/08/23 23:40 Pulse Rate 99 H 100 H Respiratory Rate 18 16 Blood Pressure 153/64 H Pulse Oximetry 94 94 Oxygen Delivery Method 09/08/23 23:45 09/08/23 23:45 09/08/23 23:50 Pulse Rate 100 H 102 H Respiratory Rate 19 17 Blood Pressure 150/68 H Pulse Oximetry 93 93 Oxygen Delivery Method Room Air 09/09/23 00:00 09/09/23 00:00 09/09/23 00:10 Pulse Rate 101 H 101 H Respiratory Rate 17 17 Blood Pressure 139/63 Pulse Oximetry 93 94 Oxygen Delivery Method Room Air 09/09/23 00:15 09/09/23 00:15 09/09/23 00:20 Pulse Rate 101 H 100 H Respiratory Rate 16 13 Blood Pressure 129/59 L Pulse Oximetry 94 94 Oxygen Delivery Method Room Air 09/09/23 00:30 09/09/23 00:30 09/09/23 00:40 Pulse Rate 100 H 100 H Respiratory Rate 14 15 Blood Pressure 134/63 Pulse Oximetry 95 94 Oxygen Delivery Method Room Air 09/09/23 00:45 09/09/23 00:45 09/09/23 00:50 Pulse Rate 100 H 101 H Respiratory Rate 14 16 Blood Pressure 131/63 Pulse Oximetry 94 95 Oxygen Delivery Method Room Air 09/09/23 01:00 09/09/23 01:00 09/09/23 01:10 Pulse Rate 100 H 99 H Respiratory Rate 16 18 Blood Pressure 134/66 Pulse Oximetry 94 95 Oxygen Delivery Method Room Air 09/09/23 01:15 09/09/23 01:15 09/09/23 01:20 Pulse Rate 97 H 94 H Respiratory Rate 14 15 Blood Pressure 137/68 Pulse Oximetry 95 95 Oxygen Delivery Method Room Air Room Air 09/09/23 01:30 09/09/23 01:30 Pulse Rate 94 H Respiratory Rate 15 Blood Pressure 134/69 Pulse Oximetry 95 Oxygen Delivery Method MDM - SOB/Dyspnea <Mona Anaya MD - Last Filed: 09/08/23 18:46> Differential Diagnosis Differential diagnosis: Likely acute exacerbation of chronic obstructive airways disease, congestive heart failure and community acquired pneumonia Lab Data 09/08/23 17:13 09/08/23 17:13 Labs: Lab Results 09/08/23 09/08/23 09/08/23 Range/Units 17:10 17:13 19:06 WBC 5.3 (4.5-11.0) X10^3/uL RBC 3.43 L (4.0-5.2) X10^6/uL Hgb 13.2 (12.0-16.0) g/dL Hct 38.5 (36-46) % MCV 112.2 H (80-100) fL MCH 38.5 H (26-34) PG MCHC 34.4 (30-36) % RDW 15.3 H (11.6-14.8) % Plt Count 530 H (150-400) X10^3/uL Neut % (Auto) 71.7 (50-75) % Lymph % (Auto) 15.4 L (25-40) % Mcnairy % (Auto) 11.3 (3-14) % Eos % (Auto) 0.7 L (2-4) % Baso % (Auto) 0.9 (0-2) % Neut # (Auto) 3800 (7361-6447) /uL Lymph # (Auto) 800 L (0853-6204) /uL Mcnairy # (Auto) 600 (0-900) /uL Eos # (Auto) 0 (0-450) /uL Baso # (Auto) 0 (0-100) /uL RBC Morphology See below Anisocytosis 1+ H Macrocytosis 1+ H PT 13.0 H (9.4-12.5) SECONDS INR 1.1 (0.9-1.3) APTT 31 (25.1-36.5) SECONDS Sodium 139 (137-145) mmol/L Potassium 3.7 (3.4-5.1) mmol/L Chloride 101 (98-107) mmol/L Carbon Dioxide 26 (22-32) mmol/L BUN 26 H (7-17) mg/dL Creatinine 0.96 (0.52-1.04) mg/dL Estimated GFR > 60 (>60) mL/min BUN/Creatinine Ratio 27.1 H (6-22) Glucose 128 H (80-110) mg/dL Lactate 1.5 (0.7-2.1) mmol/L Calcium 9.8 (8.4-10.2) mg/dL Total Bilirubin 0.9 (0.2-1.3) mg/dL AST 41 H (14-36) IU/L ALT 36 H (<35) IU/L Alkaline Phosphatase 81 (38-126) U/L Total Creatine Kinase 56 (30-135) U/L Troponin I 1.150 H* 1.300 H* (0.01-0.034) ng/mL NT-Pro-B Natriuret Pep 3600 H (<125) pg/mL Total Protein 8.8 H (6.3-8.2) g/dL Albumin 4.9 (3.5-5.0) g/dL Globulin 3.9 (1.7-4.1) g/dL Albumin/Globulin Ratio 1.3 (1.0-2.8) Chlamy pneumoniae PCR Not detected (Not Detect) Adenovirus (PCR) Not detected (Not Detect) B.parapertussis DNA PCR Not detected (Not Detecte) Coronavirus OC43 (PCR) Not detected (Not Detect) Coronavirus HKU1 (PCR) Not detected (Not Detect) Coronavirus 229E (PCR) Not detected (Not Detect) SARS-CoV-2 (PCR) Not detected (Not Detecte) Coronavirus NL63 (PCR) Not detected (Not Detect) Human Metapneumovir PCR Not detected (Not Detect) Influenza Type A (PCR) Not detected (Not Detect) Influenza Type B (PCR) Not detected (Not Detect) M. pneumoniae (PCR) Not detected (Not Detect) Parainfluenza 1 (PCR) Not detected (Not Detect) Parainfluenza 2 (PCR) Not detected (Not Detect) Parainfluenza 3 (PCR) Not detected (Not Detect) Parainfluenza 4 (PCR) Not detected (Not Detect) RSV (PCR) Not detected (Not Detect) Entero/Rhino (PCR) Not detected (Not Detect) 09/08/23 Range/Units 23:36 WBC (4.5-11.0) X10^3/uL RBC (4.0-5.2) X10^6/uL Hgb (12.0-16.0) g/dL Hct (36-46) % MCV (80-100) fL MCH (26-34) PG MCHC (30-36) % RDW (11.6-14.8) % Plt Count (150-400) X10^3/uL Neut % (Auto) (50-75) % Lymph % (Auto) (25-40) % Mcnairy % (Auto) (3-14) % Eos % (Auto) (2-4) % Baso % (Auto) (0-2) % Neut # (Auto) (0699-0573) /uL Lymph # (Auto) (6581-1001) /uL Mcnairy # (Auto) (0-900) /uL Eos # (Auto) (0-450) /uL Baso # (Auto) (0-100) /uL RBC Morphology Anisocytosis Macrocytosis PT (9.4-12.5) SECONDS INR (0.9-1.3) APTT (25.1-36.5) SECONDS Sodium (137-145) mmol/L Potassium (3.4-5.1) mmol/L Chloride (98-107) mmol/L Carbon Dioxide (22-32) mmol/L BUN (7-17) mg/dL Creatinine (0.52-1.04) mg/dL Estimated GFR (>60) mL/min BUN/Creatinine Ratio (6-22) Glucose (80-110) mg/dL Lactate (0.7-2.1) mmol/L Calcium (8.4-10.2) mg/dL Total Bilirubin (0.2-1.3) mg/dL AST (14-36) IU/L ALT (<35) IU/L Alkaline Phosphatase (38-126) U/L Total Creatine Kinase 70 (30-135) U/L Troponin I 2.140 H* (0.01-0.034) ng/mL NT-Pro-B Natriuret Pep (<125) pg/mL Total Protein (6.3-8.2) g/dL Albumin (3.5-5.0) g/dL Globulin (1.7-4.1) g/dL Albumin/Globulin Ratio (1.0-2.8) Chlamy pneumoniae PCR (Not Detect) Adenovirus (PCR) (Not Detect) B.parapertussis DNA PCR (Not Detecte) Coronavirus OC43 (PCR) (Not Detect) Coronavirus HKU1 (PCR) (Not Detect) Coronavirus 229E (PCR) (Not Detect) SARS-CoV-2 (PCR) (Not Detecte) Coronavirus NL63 (PCR) (Not Detect) Human Metapneumovir PCR (Not Detect) Influenza Type A (PCR) (Not Detect) Influenza Type B (PCR) (Not Detect) M. pneumoniae (PCR) (Not Detect) Parainfluenza 1 (PCR) (Not Detect) Parainfluenza 2 (PCR) (Not Detect) Parainfluenza 3 (PCR) (Not Detect) Parainfluenza 4 (PCR) (Not Detect) RSV (PCR) (Not Detect) Entero/Rhino (PCR) (Not Detect) MDM Narrative Medical decision making narrative: Patient presenting for heart pounding and headache while doing activity in the yd. Noted to be markedly hypertensive in triage. Taken quickly to ER bed for evaluation and further treatment. Patient does have history of migraine headaches, however has not had a headache in many years and with current hypertension this is a change in headache pattern. Reglan and Benadryl ordered for headache, hydralazine order for blood pressure. Labs and imaging to be obtained. Care of patient is signed out to Dr. Escobedo at 1800 <Jacques Escobedo DO - Last Filed: 09/09/23 01:38> Lab Data Attestation: I reviewed the patient's lab results. Labs: Lab Results 09/08/23 09/08/23 09/08/23 Range/Units 17:10 17:13 19:06 WBC 5.3 (4.5-11.0) X10^3/uL RBC 3.43 L (4.0-5.2) X10^6/uL Hgb 13.2 (12.0-16.0) g/dL Hct 38.5 (36-46) % MCV 112.2 H (80-100) fL MCH 38.5 H (26-34) PG MCHC 34.4 (30-36) % RDW 15.3 H (11.6-14.8) % Plt Count 530 H (150-400) X10^3/uL Neut % (Auto) 71.7 (50-75) % Lymph % (Auto) 15.4 L (25-40) % [place] % (Auto) 11.3 (3-14) % Eos % (Auto) 0.7 L (2-4) % Baso % (Auto) 0.9 (0-2) % Neut # (Auto) 3800 (7819-2986) /uL Lymph # (Auto) 800 L (7835-1727) /uL [place] # (Auto) 600 (0-900) /uL Eos # (Auto) 0 (0-450) /uL Baso # (Auto) 0 (0-100) /uL RBC Morphology See below Anisocytosis 1+ H Macrocytosis 1+ H PT 13.0 H (9.4-12.5) SECONDS INR 1.1 (0.9-1.3) APTT 31 (25.1-36.5) SECONDS Sodium 139 (137-145) mmol/L Potassium 3.7 (3.4-5.1) mmol/L Chloride 101 (98-107) mmol/L Carbon Dioxide 26 (22-32) mmol/L BUN 26 H (7-17) mg/dL Creatinine 0.96 (0.52-1.04) mg/dL Estimated GFR > 60 (>60) mL/min BUN/Creatinine Ratio 27.1 H (6-22) Glucose 128 H (80-110) mg/dL Lactate 1.5 (0.7-2.1) mmol/L Calcium 9.8 (8.4-10.2) mg/dL Total Bilirubin 0.9 (0.2-1.3) mg/dL AST 41 H (14-36) IU/L ALT 36 H (<35) IU/L Alkaline Phosphatase 81 (38-126) U/L Total Creatine Kinase 56 (30-135) U/L Troponin I 1.150 H* 1.300 H* (0.01-0.034) ng/mL NT-Pro-B Natriuret Pep 3600 H (<125) pg/mL Total Protein 8.8 H (6.3-8.2) g/dL Albumin 4.9 (3.5-5.0) g/dL Globulin 3.9 (1.7-4.1) g/dL Albumin/Globulin Ratio 1.3 (1.0-2.8) Chlamy pneumoniae PCR Not detected (Not Detect) Adenovirus (PCR) Not detected (Not Detect) B.parapertussis DNA PCR Not detected (Not Detecte) Coronavirus OC43 (PCR) Not detected (Not Detect) Coronavirus HKU1 (PCR) Not detected (Not Detect) Coronavirus 229E (PCR) Not detected (Not Detect) SARS-CoV-2 (PCR) Not detected (Not Detecte) Coronavirus NL63 (PCR) Not detected (Not Detect) Human Metapneumovir PCR Not detected (Not Detect) Influenza Type A (PCR) Not detected (Not Detect) Influenza Type B (PCR) Not detected (Not Detect) M. pneumoniae (PCR) Not detected (Not Detect) Parainfluenza 1 (PCR) Not detected (Not Detect) Parainfluenza 2 (PCR) Not detected (Not Detect) Parainfluenza 3 (PCR) Not detected (Not Detect) Parainfluenza 4 (PCR) Not detected (Not Detect) RSV (PCR) Not detected (Not Detect) Entero/Rhino (PCR) Not detected (Not Detect) 09/08/23 Range/Units 23:36 WBC (4.5-11.0) X10^3/uL RBC (4.0-5.2) X10^6/uL Hgb (12.0-16.0) g/dL Hct (36-46) % MCV (80-100) fL MCH (26-34) PG MCHC (30-36) % RDW (11.6-14.8) % Plt Count (150-400) X10^3/uL Neut % (Auto) (50-75) % Lymph % (Auto) (25-40) % [place] % (Auto) (3-14) % Eos % (Auto) (2-4) % Baso % (Auto) (0-2) % Neut # (Auto) (6070-3783) /uL Lymph # (Auto) (3524-4639) /uL [place] # (Auto) (0-900) /uL Eos # (Auto) (0-450) /uL Baso # (Auto) (0-100) /uL RBC Morphology Anisocytosis Macrocytosis PT (9.4-12.5) SECONDS INR (0.9-1.3) APTT (25.1-36.5) SECONDS Sodium (137-145) mmol/L Potassium (3.4-5.1) mmol/L Chloride (98-107) mmol/L Carbon Dioxide (22-32) mmol/L BUN (7-17) mg/dL Creatinine (0.52-1.04) mg/dL Estimated GFR (>60) mL/min BUN/Creatinine Ratio (6-22) Glucose (80-110) mg/dL Lactate (0.7-2.1) mmol/L Calcium (8.4-10.2) mg/dL Total Bilirubin (0.2-1.3) mg/dL AST (14-36) IU/L ALT (<35) IU/L Alkaline Phosphatase (38-126) U/L Total Creatine Kinase 70 (30-135) U/L Troponin I 2.140 H* (0.01-0.034) ng/mL NT-Pro-B Natriuret Pep (<125) pg/mL Total Protein (6.3-8.2) g/dL Albumin (3.5-5.0) g/dL Globulin (1.7-4.1) g/dL Albumin/Globulin Ratio (1.0-2.8) Chlamy pneumoniae PCR (Not Detect) Adenovirus (PCR) (Not Detect) B.parapertussis DNA PCR (Not Detecte) Coronavirus OC43 (PCR) (Not Detect) Coronavirus HKU1 (PCR) (Not Detect) Coronavirus 229E (PCR) (Not Detect) SARS-CoV-2 (PCR) (Not Detecte) Coronavirus NL63 (PCR) (Not Detect) Human Metapneumovir PCR (Not Detect) Influenza Type A (PCR) (Not Detect) Influenza Type B (PCR) (Not Detect) M. pneumoniae (PCR) (Not Detect) Parainfluenza 1 (PCR) (Not Detect) Parainfluenza 2 (PCR) (Not Detect) Parainfluenza 3 (PCR) (Not Detect) Parainfluenza 4 (PCR) (Not Detect) RSV (PCR) (Not Detect) Entero/Rhino (PCR) (Not Detect) Imaging Data Chest x-ray: Radiologist's Impression: PROCEDURE: XR CHEST 1V INDICATIONS: Shortness of breath TECHNIQUE: One view of the chest was acquired. COMPARISON: None. FINDINGS: Surgical changes and devices: None. Lungs and pleura: Lungs are clear. No pleural effusions or pneumothorax. Mediastinum: Mediastinal contours appear normal. Heart size is normal. Bones and chest wall: No suspicious bony lesions. Overlying soft tissues appear unremarkable. IMPRESSION: No acute cardiopulmonary abnormality is seen. CT scan - head: Radiologist's Impression: PROCEDURE: CT HEAD/BRAIN WO CON INDICATIONS: COLINDRES/SEVERE HTN TECHNIQUE: Noncontrast 4.5 mm thick angled axial sections acquired from the foramen magnum to the vertex, with coronal and sagittal reformats. For radiation dose reduction, the following was used: automated exposure control, adjustment of mA and/or kV according to patient size. COMPARISON: [facility], CT, HEAD WITHOUT CONTRAST, 08/18/2010, 10:29. FINDINGS: Image quality: Diagnostic. CSF spaces: Basal cisterns are patent. No extra-axial fluid collections. Ventricles are normal in size and shape. Brain: No midline shift. No intracranial masses or hemorrhage. [place]-white matter interface is normal. Skull and face: Calvarium and visualized facial bones are intact, without suspicious lesions. Sinuses: Visualized sinuses and mastoids are clear. IMPRESSION: Normal CT of the brain CT scan - chest: Radiologist's Impression: PROCEDURE: CT ANGIO CHEST PE PROTOCOL INDICATIONS: Chest pain, shortness of breath, tachycardia TECHNIQUE: After the administration of intravenous contrast, 2 mm thick sections acquired from the pulmonary apices to the posterior costophrenic angles. 3-dimensional maximum intensity projection (MIP) coronal and sagittal reformats were then acquired through the thorax. For radiation dose reduction, the following was used: automated exposure control, adjustment of mA and/or kV according to patient size. COMPARISON: None. FINDINGS: Image quality: Diagnostic. Pulmonary arteries: Pulmonary arteries are normal in size, and demonstrate no intraluminal filling defects to suggest central pulmonary embolism. Lower Neck: No enlarged lymph nodes. Thyroid: No thyroid nodules which require sonographic follow up, per consensus guidelines. Axillae: No enlarged lymph nodes. Chest Wall: Unremarkable. Bones: Unremarkable. Lungs and Pleura: No pneumothorax or pleural effusions. No focal pulmonary consolidations. Scattered subpleural and perifissural nodules measuring less than a centimeter. Heart: Heart size is normal. No pericardial effusion. Thoracic Vessels: No aortic aneurysm. Atherosclerotic vascular calcifications. Mediastinum and Sarita: No enlarged lymph nodes. Esophagus: No wall thickening. Go to hiatal hernia. Upper Abdomen: Visualized upper abdomen solid organs and bowel loops appear normal. IMPRESSION: No pulmonary embolus. No acute cardiopulmonary process. Scattered subpleural and perifissural nodules measuring less than 1 centimeter, favored to represent benign intrapulmonary lymph nodes. One year follow-up CT scan can be obtained as clinically indicated. CTA - brain/neck: Radiologist's Impression: PROCEDURE: CT ANGIO HEAD AND NECK INDICATIONS: HTN, SOB and headache TECHNIQUE: After the administration of intravenous contrast, 1 mm thick sections acquired from the aortic arch through the [place]. 3-dimensional ptvtlfk-kuuevawmn-jnylcpszoz (MIP) and/or volume rendering reformats were acquired of the central intracranial vasculature and neck separately. For radiation dose reduction, the following was used: automated exposure control, adjustment of mA and/or kV according to patient size. COMPARISON: None. FINDINGS: Image quality: Diagnostic. BRAIN: Please refer to separately dictated CT of the head HEAD CT ANGIOGRAPHY: Anterior circulation: Intracranial internal carotid arteries are normal in size and flow with atherosclerotic vascular calcifications. The right A1 segment is hypoplastic. Otherwise, the flow within the paired anterior cerebral arteries is normal and symmetric. The flow within the middle cerebral arteries is normal and symmetric. The anterior communicating artery is seen. No aneurysms are seen. Posterior circulation: Visualized portions of the vertebral arteries demonstrate normal caliber, and join to form a normal appearing basilar artery. Flow within the posterior cerebral arteries is normal and symmetric. No aneurysms are seen. Diminutive appearance of the right transverse and sigmoid sinus compared to the left with non opacification of the right sigmoid sinus. This may represent a dominant left system, venous thrombosis is not entirely excluded. NECK CT ANGIOGRAPHY: Carotid system: The great vessels demonstrate a conventional anatomy as they arise from the aortic arch. The origins of the common carotid arteries appear patent. The common carotid arteries demonstrate normal caliber and courses. Atherosclerotic calcifications at the carotid bifurcations bilaterally. There is mild stenosis of the right proximal ICA, no stenosis of the proximal left ICA. The internal carotid arteries demonstrate normal calibers and courses. Posterior circulation: The origins of the vertebral arteries both appear widely patent. The more superior extracranial portions of both vertebral arteries also demonstrate normal courses and calibers. They join to form a normal appearing basilar artery. Soft tissues: Visualized neck soft tissues demonstrate no suspicious abnormalities. Bones: No suspicious bony lesions. Visualized cervical spine appears normally aligned. Degenerative changes of the cervical spine. IMPRESSION: No significant intracranial arterial abnormality is seen. No significant abnormality is seen within the arteries of the neck. Diminutive appearance of the right transverse and sigmoid sinus compared to the left with non opacification of the right sigmoid sinus. This may represent a dominant left system, venous thrombosis is not entirely excluded. Any quantitative measurements of stenosis were performed using NASCET criteria. MDM Narrative Medical decision making narrative: Patient presenting for heart pounding and headache while doing activity in the yd. Noted to be markedly hypertensive in triage. Taken quickly to ER bed for evaluation and further treatment. Patient does have history of migraine headaches, however has not had a headache in many years and with current hypertension this is a change in headache pattern. Reglan and Benadryl ordered for headache, hydralazine order for blood pressure. Labs and imaging to be obtained. Care of patient is signed out to Dr. Escobedo at [address] escobedo: Received turned over. Review patient's history and physical exam. Prior to my assumption of care her troponin resulted as being elevated. Her BNP is also elevated. I went into evaluate the patient. She is still having a headache. Her initial medications to treat the headache has not improved any of her symptoms. She remains hypertensive. There was some concern about pulmonary embolism or dissection. CT scan of the chest and CTA of the head and neck were ordered. Subsequently these were unremarkable. Her non con head CT is unremarkable. All the CT scans were completed less than 6 hours after the onset of her headache. She does have a history of migraines and stated this did feel like prior migraine. She never describes chest pressure or pain. She states it was more of a ?pounding? in her chest. She was started on a nicardipine drip because of her high blood pressure and also the elevation in the troponin. This did improve her systolic blood pressure. Goal was maintaining her between 130 and 150 which according to her as her baseline home systolic blood pressure. She was given an aspirin. Started on heparin. Subsequent troponins show rising levels. She is currently asymptomatic. Her headache is gone. Pounding in her chest is gone. This is most likely after the pain medication for her headache. The had a long discussion with her and family at bedside. I do feel the patient needs transfer to facility with cardiovascular specialty availability. I did discuss the case with Dr. Ramirez hospitalist at [facility] who accepts the patient for transfer. Patient is currently stable for transport. Discharge Plan Departure Patient Disposition: [facility] Clinical Impression: Non-ST elevation PA (NSTEMI), Hypertensive emergency Prescriptions: No Action methylphenidate HCl 27 mg tablet extended release 24hr 27 mg PO Patient Comments: TAKE ONE TABLET BY MOUTH EVERY MORNING hydroxyurea 500 mg capsule 500 mg PO tizanidine 4 mg tablet 4 mg PO Patient Comments: TAKE ONE TABLET BY MOUTH NIGHTLY AT BEDTIME trazodone 50 mg tablet 50 mg PO Patient Comments: TAKE ONE TABLET BY MOUTH NIGHTLY AT BEDTIME desonide 0.05 % ointment 1 applic topical Patient Comments: APPLY TO LIPS TWO TIMES DAILY FOR TWO WEEKS NEEDED. levothyroxine 50 mcg tablet 50 mcg PO Patient Comments: TAKE ONE TABLET BY MOUTH ONE TIME DAILY 30 MINS PROIR TO EATING fluoxetine 10 mg capsule 10 mg PO Patient Comments: TAKE TWO TO THREE CAPSULES BY MOUTH ONE TIME DAILY propranolol 10 mg tablet 20 mg PO Referrals: Shana Rojas MD [Primary Care Provider] -
[2023-09-08 17:27] LABS: Add Manual Diff / Slide Review NO; Basophils Absolute Auto 0 /uL (0-100); Basophils Percent Auto 0.9 % (0-2); Eosinophils Absolute Auto 0 /uL (0-450); Eosinophils Percent Auto 0.7 % (2-4); Hematocrit 38.5 % (36-46); Hemoglobin 13.2 g/dL (12.0-16.0); Lymphocytes Absolute Auto 800 /uL (1100-4500); Lymphocytes Percent Auto 15.4 % (25-40); Mean Corpuscular HGB Conc 34.4 % (30-36); Mean Corpuscular Hemoglobin 38.5 PG (26-34); Mean Corpuscular Volume 112.2 fL (80-100); Monocytes Absolute Auto 600 /uL (0-900); Monocytes Percent Auto 11.3 % (3-14); Neutrophils Absolute Auto 3800 /uL (1500-7000); Neutrophils Percent Auto 71.7 % (50-75); Platelet Count 530 X10^3/uL (150-400); Red Blood Cell Count 3.43 X10^6/uL (4.0-5.2); Red Cell Distribution Width 15.3 % (11.6-14.8); White Blood Cell Count 5.3 X10^3/uL (4.5-11.0)
[2023-09-08] MEDS: HYDRALAZINE 20 MG/ML VIAL IV (17:29)
[2023-09-08] MEDS: METOCLOPRAMIDE 10 MG/2 ML INJ IV (17:29)
[2023-09-08 17:33] LABS: INR 1.1 (0.9-1.3)
[2023-09-08 17:36] LABS: Lactate (Lactic Acid) 1.5 mmol/L (0.7-2.1)
[2023-09-08 17:38] LABS: Alanine Aminotransferase 36 IU/L (<35); Albumin 4.9 g/dL (3.5-5.0); Albumin Globulin Ratio 1.3 (1.0-2.8); Alkaline Phosphatase 81 U/L (38-126); Aspartate Aminotransferase 41 IU/L (14-36); BUN Creatinine Ratio 27.1 (6-22); Bilirubin Total 0.9 mg/dL (0.2-1.3); Blood Urea Nitrogen 26 mg/dL (7-17); Calcium 9.8 mg/dL (8.4-10.2); Carbon Dioxide 26 mmol/L (22-32); Chloride 101 mmol/L (98-107); Estimated Glomerular Filt Rate > 60 mL/min (>60); Globulin 3.9 g/dL (1.7-4.1); Glucose 128 mg/dL (80-110); HEMOLYSIS < 15 (0-50); Potassium 3.7 mmol/L (3.4-5.1); Sodium 139 mmol/L (137-145); Total Protein 8.8 g/dL (6.3-8.2)
[2023-09-08 17:49] LABS: NT-proBNP (BNP-Adult 18+) 3600 pg/mL (<125)
[2023-09-08 17:54] LABS: Anisocytosis 1+; Macrocytosis 1+
[2023-09-08 18:02] LABS: Adenovirus Not Detected (Not Detect); B. parapertussis Not Detected (Not Detecte); Bordetella pertussis Not Detected (Not Detect); Chlamydophila pneumoniae Not Detected (Not Detect); Coronavirus 229E Not Detected (Not Detect); Coronavirus HKU1 Not Detected (Not Detect); Coronavirus NL 63 Not Detected (Not Detect); Coronavirus OC43 Not Detected (Not Detect); Human Metapneumovirus Not Detected (Not Detect); Human Rhinovirus/Enterovirus Not Detected (Not Detect); Influenza A Not Detected (Not Detect); Influenza B Not Detected (Not Detect); Mycoplasma pneumoniae Not Detected (Not Detect); Parainfluenza Virus 1 Not Detected (Not Detect); Parainfluenza Virus 2 Not Detected (Not Detect); Parainfluenza Virus 3 Not Detected (Not Detect); Parainfluenza Virus 4 Not Detected (Not Detect); Respiratory Syncytial Virus Not Detected (Not Detect); SARS- CoV-2 Not Detected (Not Detecte)
[2023-09-08] MEDS: diphenhydrAMINE 50 MG/ML VIAL IV (18:02)
--- NOTE | 2023-09-08 18:15 | DI.CT.S_ITS ---
PROCEDURE: CT ANGIO HEAD AND NECK INDICATIONS: HTN, SOB and headache TECHNIQUE: After the administration of intravenous contrast, 1 mm thick sections acquired from the aortic arch through the [place]. 3-dimensional lvekeio-tsasvfsze-lspbedqrcn (MIP) and/or volume rendering reformats were acquired of the central intracranial vasculature and neck separately. For radiation dose reduction, the following was used: automated exposure control, adjustment of mA and/or kV according to patient size. COMPARISON: None. FINDINGS: Image quality: Diagnostic. BRAIN: Please refer to separately dictated CT of the head HEAD CT ANGIOGRAPHY: Anterior circulation: Intracranial internal carotid arteries are normal in size and flow with atherosclerotic vascular calcifications. The right A1 segment is hypoplastic. Otherwise, the flow within the paired anterior cerebral arteries is normal and symmetric. The flow within the middle cerebral arteries is normal and symmetric. The anterior communicating artery is seen. No aneurysms are seen. Posterior circulation: Visualized portions of the vertebral arteries demonstrate normal caliber, and join to form a normal appearing basilar artery. Flow within the posterior cerebral arteries is normal and symmetric. No aneurysms are seen. Diminutive appearance of the right transverse and sigmoid sinus compared to the left with non opacification of the right sigmoid sinus. This may represent a dominant left system, venous thrombosis is not entirely excluded. NECK CT ANGIOGRAPHY: Carotid system: The great vessels demonstrate a conventional anatomy as they arise from the aortic arch. The origins of the common carotid arteries appear patent. The common carotid arteries demonstrate normal caliber and courses. Atherosclerotic calcifications at the carotid bifurcations bilaterally. There is mild stenosis of the right proximal ICA, no stenosis of the proximal left ICA. The internal carotid arteries demonstrate normal calibers and courses. Posterior circulation: The origins of the vertebral arteries both appear widely patent. The more superior extracranial portions of both vertebral arteries also demonstrate normal courses and calibers. They join to form a normal appearing basilar artery. Soft tissues: Visualized neck soft tissues demonstrate no suspicious abnormalities. Bones: No suspicious bony lesions. Visualized cervical spine appears normally aligned. Degenerative changes of the cervical spine. IMPRESSION: No significant intracranial arterial abnormality is seen. No significant abnormality is seen within the arteries of the neck. Diminutive appearance of the right transverse and sigmoid sinus compared to the left with non opacification of the right sigmoid sinus. This may represent a dominant left system, venous thrombosis is not entirely excluded. Any quantitative measurements of stenosis were performed using NASCET criteria. Dictated by: Brice Saha M.D. on 09/08/2023 at 19:09 Approved by: Brice Saha M.D. on 09/08/2023 at 19:15
--- NOTE | 2023-09-08 18:15 | DI.CT.S_ITS ---
PROCEDURE: CT ANGIO CHEST PE PROTOCOL INDICATIONS: Chest pain, shortness of breath, tachycardia TECHNIQUE: After the administration of intravenous contrast, 2 mm thick sections acquired from the pulmonary apices to the posterior costophrenic angles. 3-dimensional maximum intensity projection (MIP) coronal and sagittal reformats were then acquired through the thorax. For radiation dose reduction, the following was used: automated exposure control, adjustment of mA and/or kV according to patient size. COMPARISON: None. FINDINGS: Image quality: Diagnostic. Pulmonary arteries: Pulmonary arteries are normal in size, and demonstrate no intraluminal filling defects to suggest central pulmonary embolism. Lower Neck: No enlarged lymph nodes. Thyroid: No thyroid nodules which require sonographic follow up, per consensus guidelines. Axillae: No enlarged lymph nodes. Chest Wall: Unremarkable. Bones: Unremarkable. Lungs and Pleura: No pneumothorax or pleural effusions. No focal pulmonary consolidations. Scattered subpleural and perifissural nodules measuring less than a centimeter. Heart: Heart size is normal. No pericardial effusion. Thoracic Vessels: No aortic aneurysm. Atherosclerotic vascular calcifications. Mediastinum and Sarita: No enlarged lymph nodes. Esophagus: No wall thickening. Go to hiatal hernia. Upper Abdomen: Visualized upper abdomen solid organs and bowel loops appear normal. IMPRESSION: No pulmonary embolus. No acute cardiopulmonary process. Scattered subpleural and perifissural nodules measuring less than 1 centimeter, favored to represent benign intrapulmonary lymph nodes. One year follow-up CT scan can be obtained as clinically indicated. Dictated by: Brice Saha M.D. on 09/08/2023 at 19:02 Approved by: Brice Saha M.D. on 09/08/2023 at 19:06
--- NOTE | 2023-09-08 18:16 | PC.NURSE ---
Pt reports history of HTN and hyperlipidemia but was working on changing her diet and never started medications. Pt reports SOB with exhertion/ambulation starting yesterday. She denies chest pain.
[2023-09-08] MEDS: ASPIRIN 81 MG CHEW TAB 324 MG PO (18:26)
[2023-09-08] MEDS: HYDROMORPHONE 0.5 MG INJ IV (18:27)
[2023-09-08] MEDS: NICARDIPINE 25 MG in SODIUM CHLORIDE 0.9% 240 ML 50 MG IV (19:20)
[2023-09-08 19:21] LABS: Creatine Kinase 56 U/L (30-135)
[2023-09-08 20:03] LABS: PTT Partial Thromboplastin Tim 31 SECONDS (25.1-36.5)
[2023-09-08] MEDS: HEPARIN 5,000 UNIT/ML VIAL 4300 UNIT IV (20:29)
[2023-09-08] MEDS: HEPARIN DRIP 25,000 UNIT/500 ML IV.SOLN 17.2 UNIT IV (20:31)
--- NOTE | 2023-09-08 21:49 | PC.NURSE ---
Nicardipine restarted. Pt aware of medication and use. Family at bedside with pt. Water given to pt per request. Pt denies any further needs at this time.
--- NOTE | 2023-09-08 22:57 | PC.NURSE ---
Rachael Patricia sister Jeremy son Family to go home. Told them we would call with updates or change in status. Pt given a turkey sandwich, apple juice and apple sauce. Family provided with drinks as well. No complaints at this time.
[2023-09-08] MEDS: TRAZODONE 50 MG TABLET PO (23:08)
[2023-09-08 23:52] LABS: Creatine Kinase 70 U/L (30-135)
[2023-09-09] VITALS (14 sets, daily range): BP systolic 129–139; BP diastolic 59–69; PULSE 94–101; RESP 13–18; O2SAT 93–95
[2023-09-09 01:26] LABS: PTT Partial Thromboplastin Tim 50 SECONDS (25.1-36.5)
== END 2023-09-09 01:55 | disposition short-term general hospital (02) ==
PROVIDERS: Emergency Medicine; Emergency Provider Emergency Medicine; Family Provider Internal Medicine Hematology & Oncology; PCP Internal Medicine
DX: I21.4 Non-ST elevation (NSTEMI) myocardial infarction (principal); I16.1 Hypertensive emergency; Z20.822 Contact with and (suspected) exposure to COVID-19
CPT/HCPCS: 36415; 70450; 70496; 70498; 71045; 71275; 80053; 82550; 83605; 83880; 84484; 85025; 85610; 85730; 87633; 93005; 93010; 96365; 96366; 96368; 96375; 99284; J0360; J1170; J1200; J1644; J2765; Q9967

== ENCOUNTER 2023-12-13 14:15 | Outpatient (RCR) | payer OTHER, SELFPAY | END 2024-01-13 16:15 | LOC: CAR 14:15 | PROVIDERS: Family Provider Internal Medicine Hematology & Oncology; PCP Internal Medicine; Referring Provider Internal Medicine Cardiovascular Disease; Visit Provider Internal Medicine Cardiovascular Disease | DX: I21.4 Non-ST elevation (NSTEMI) myocardial infarction (principal) | CPT/HCPCS: 93798 ==

== ENCOUNTER 2024-04-23 13:28 | Emergency (ER) | payer OTHER, MEDICARE, SELFPAY ==
[2024-04-23 13:35] VITALS: BP 130/77; PULSE 102; RESP 18; TEMP 36.7; O2SAT 99; BMI 27.3
--- NOTE | 2024-04-23 13:38 | DI.RAD.S_ITS ---
PROCEDURE: XR CHEST 1V INDICATIONS: chest pain TECHNIQUE: One view of the chest was acquired. COMPARISON: [facility], CR, XR CHEST 1V, 09/08/2023, 17:25. FINDINGS: Surgical changes and devices: None. Lungs and pleura: Lungs are clear. No pleural effusions or pneumothorax. Mediastinum: Mediastinal contours appear normal. Heart size is normal. Bones and chest wall: No suspicious bony lesions. Overlying soft tissues appear unremarkable. IMPRESSION: No acute cardiopulmonary abnormality is seen. Dictated by: Brice Saha M.D. on 04/23/2024 at 15:03 Approved by: Brice Saha M.D. on 04/23/2024 at 15:04
[2024-04-23 13:46] VITALS: PULSE 97; O2SAT 96
--- NOTE | 2024-04-23 13:51 | EKG_ITS ---
[facility] [address], [place] [address] Test Date: 2024-04-23 Pat Name: Leona Aggarwal Department: [facility] Room: Gender: Female Scaleman: LUCRECIA : 1960 Requested By: Order Number: [id number] Reading MD: Otoniel Dunn MD Measurements Intervals [place] Rate: 93 P: 19 VA: 146 QRS: -15 QRSD: 92 T: 3 QT: 358 QTc: 445 Interpretive Statements Normal sinus rhythm Moderate voltage criteria for LVH, may be normal variant ( R in aVL , [place] product ) Electronically Signed On 04-24-2024 8:26:04 PDT by Otoniel Dunn MD
[2024-04-23 14:00] VITALS: BP 131/66; PULSE 89; O2SAT 96
[2024-04-23] MEDS: ASPIRIN 81 MG CHEW TAB 324 MG PO (14:03)
[2024-04-23 14:09] LABS: INR 1.1 (0.9-1.3); Prothrombin Time 12.3 SECONDS (9.4-12.5)
[2024-04-23 14:11] LABS: Add Manual Diff / Slide Review NO; Basophils Absolute Auto 0 /uL (0-100); Basophils Percent Auto 0.6 % (0-2); Eosinophils Absolute Auto 0 /uL (0-450); Eosinophils Percent Auto 0.7 % (2-4); Hematocrit 32.9 % (36-46); Hemoglobin 11.4 g/dL (12.0-16.0); Lymphocytes Absolute Auto 600 /uL (1100-4500); Lymphocytes Percent Auto 12.1 % (25-40); Mean Corpuscular HGB Conc 34.7 % (30-36); Mean Corpuscular Hemoglobin 30.1 PG (26-34); Mean Corpuscular Volume 86.7 fL (80-100); Monocytes Absolute Auto 500 /uL (0-900); Monocytes Percent Auto 10.4 % (3-14); Neutrophils Absolute Auto 3600 /uL (1500-7000); Neutrophils Percent Auto 76.2 % (50-75); PTT Partial Thromboplastin Tim 20 SECONDS (25.1-36.5); Platelet Count 230 X10^3/uL (150-400); Red Blood Cell Count 3.79 X10^6/uL (4.0-5.2); Red Cell Distribution Width 23.1 % (11.6-14.8); White Blood Cell Count 4.7 X10^3/uL (4.5-11.0)
[2024-04-23 14:13] LABS: Alanine Aminotransferase 39 IU/L (<35); Albumin 4.3 g/dL (3.5-5.0); Albumin Globulin Ratio 1.3 (1.0-2.8); Alkaline Phosphatase 76 U/L (38-126); Aspartate Aminotransferase 38 IU/L (14-36); BUN Creatinine Ratio 21.1 (6-22); Blood Urea Nitrogen 16 mg/dL (7-17); Calcium 9.4 mg/dL (8.4-10.2); Carbon Dioxide 24 mmol/L (22-32); Chloride 102 mmol/L (98-107); Creatine Kinase 29 U/L (30-135); Estimated Glomerular Filt Rate > 60 mL/min (>60); Globulin 3.4 g/dL (1.7-4.1); Glucose 102 mg/dL (80-110); HEMOLYSIS 17 (0-50); Lipase 102 U/L (23-300); Potassium 3.8 mmol/L (3.4-5.1); Sodium 133 mmol/L (137-145); Total Protein 7.7 g/dL (6.3-8.2)
[2024-04-23 14:25] LABS: NT-proBNP (BNP-Adult 18+) 56 pg/mL (<125); Troponin I < 0.012 ng/mL (0.01-0.034)
[2024-04-23 14:30] VITALS: BP 146/67; PULSE 87; O2SAT 91
[2024-04-23 14:40] LABS: Anisocytosis 3+; Macrocytosis 1+; Microcytosis 1+; Ovalocytes 1+
--- NOTE | 2024-04-23 14:43 | ED.CHESTPAIN ---
HPI - Chest Pain General Chief Complaint: Chest Pain Stated Complaint: SOB, headache, pressure in neck and arms Time Seen by Provider: 04/23/24 13:51 Source: patient Mode of arrival: Ambulatory History of Present Illness HPI narrative: 64-year-old woman with a history of essential thrombocytosis, hyperlipidemia, hypertension currently on Pegasys for treatment of her essential thrombocytosis and has been so since October of this year. Over the last month she notes that when she stands up she has a squeezing sensation over her head and neck and upper chest. It does not happen every time she stands up but it is consistent enough that she talked with her oncologist who requested that she come to the ER for further evaluation. She has not having overt chest pain or palpitations. Over the last 3 days she is developed some nasal stuffiness but symptoms certainly preceded this. She has not complaining of orthopnea dyspnea, abdominal pain, vomiting or diarrhea. Related Data Home Medications Medication Instructions Recorded Confirmed desonide 0.05 % topical ointment 1 applic topical 02/09/23 02/09/23 fluoxetine 10 mg capsule 10 mg PO 02/09/23 02/09/23 hydroxyurea 500 mg capsule 500 mg PO 02/09/23 02/09/23 levothyroxine 50 mcg tablet 50 mcg PO 02/09/23 02/09/23 methylphenidate HCl 27 mg 27 mg PO 02/09/23 02/09/23 tablet,extended release 24 hr propranolol 10 mg tablet 20 mg PO 02/09/23 02/09/23 tizanidine 4 mg tablet 4 mg PO 02/09/23 02/09/23 trazodone 50 mg tablet 50 mg PO 02/09/23 02/09/23 Allergies Allergy/AdvReac Type Severity Reaction Status Date / Time No Known Drug Allergies Allergy Verified 04/23/24 13:38 Review of Systems Review of Systems Narrative: Pertinent positive and negative findings as per HPI Patient History Medical History Insomnia, psychophysiological Snoring Excessive daytime sleepiness ADD (attention deficit disorder) Closed head injury (~2010) Obstructive sleep apnea Essential thrombocythemia Social History Smoking Status: Former smoker Smoking Status: Former smoker Substance Use Type: does not use Exam Initial Vital Signs Initial Vital Signs: Vital Signs Temperature 98.0 F 04/23/24 13:35 Pulse Rate 102 H 04/23/24 13:35 Respiratory Rate 18 04/23/24 13:35 Blood Pressure 130/77 04/23/24 13:35 Pulse Oximetry 99 04/23/24 13:35 Oxygen Delivery Method Room Air 04/23/24 13:35 Orthostatics were done bedside. Standing blood pressure 116/59 and heart rate 90, supine 131/63 heart rate 80 General: Chronically ill-appearing but in no acute distress. Able to give a complete and coherent history. Well-nourished well-developed HEENT: Moist mucous membranes, normal sclera with reactive pupils, Neck: No JVD, supple Respiratory: Lungs are clear to auscultation, no wheezing no rales no rhonchi. Full and symmetrical air movement Cardiac: Regular rate and rhythm no murmurs no bruits Abdomen: Soft, nontender, good bowel tones, no flank pain Skin: Warm and dry, no rashes Neurologic: Grossly neurologically intact with no obvious asymmetries or abnormalities Extremities: No trauma, well perfused Psych: Cooperative, appropriate insight and affect Course Orders Ordered: ED Orders 04/23/24 13:38 XR chest 1V Stat EKG-12 Lead Stat 04/23/24 13:50 Complete Blood Count AUTO DIFF Stat Comprehensive Metabolic Panel Stat Lipase Stat Magnesium Stat NT-proBNP (BNP-Adult 18+) Stat PTT Partial Thromboplastin Pro Stat Prothrombin Time INR Stat Troponin & CK Cardiac Panel Stat Discontinued Medications Aspirin (Aspirin 81 Mg Chew Tab) 324 mg PO NOW ONE Stop: 04/23/24 13:39 Last Admin: 04/23/24 14:03 Dose: 324 mg Documented By: RANCHO Vital Signs Vital signs: Vital Signs - 8 hr 04/23/24 13:35 04/23/24 13:46 04/23/24 14:00 Temperature 98.0 F Pulse Rate 102 H 97 H Respiratory Rate 18 Blood Pressure 130/77 131/66 Pulse Oximetry 99 96 Oxygen Delivery Method Room Air 04/23/24 14:00 Temperature Pulse Rate 89 Respiratory Rate Blood Pressure Pulse Oximetry 96 Oxygen Delivery Method MDM - Chest Pain Lab Data 04/23/24 13:50 04/23/24 13:50 Labs: Lab Results 04/23/24 Range/Units 13:50 WBC 4.7 (4.5-11.0) X10^3/uL RBC 3.79 L (4.0-5.2) X10^6/uL Hgb 11.4 L (12.0-16.0) g/dL Hct 32.9 L (36-46) % MCV 86.7 (80-100) fL MCH 30.1 (26-34) PG MCHC 34.7 (30-36) % RDW 23.1 H (11.6-14.8) % Plt Count 230 (150-400) X10^3/uL Neut % (Auto) 76.2 H (50-75) % Lymph % (Auto) 12.1 L (25-40) % [place] % (Auto) 10.4 (3-14) % Eos % (Auto) 0.7 L (2-4) % Baso % (Auto) 0.6 (0-2) % Neut # (Auto) 3600 (3928-8861) /uL Lymph # (Auto) 600 L (4219-8125) /uL [place] # (Auto) 500 (0-900) /uL Eos # (Auto) 0 (0-450) /uL Baso # (Auto) 0 (0-100) /uL RBC Morphology See below Anisocytosis 3+ H Microcytosis 1+ H Macrocytosis 1+ H Ovalocytes 1+ H Sodium 133 L (137-145) mmol/L Potassium 3.8 (3.4-5.1) mmol/L Chloride 102 (98-107) mmol/L Carbon Dioxide 24 (22-32) mmol/L BUN 16 (7-17) mg/dL Creatinine 0.76 (0.52-1.04) mg/dL Estimated GFR > 60 (>60) mL/min BUN/Creatinine Ratio 21.1 (6-22) Glucose 102 (80-110) mg/dL Calcium 9.4 (8.4-10.2) mg/dL Magnesium 2.0 (1.6-2.3) mg/dL Total Bilirubin 1.0 (0.2-1.3) mg/dL AST 38 H (14-36) IU/L ALT 39 H (<35) IU/L Alkaline Phosphatase 76 (38-126) U/L Total Creatine Kinase 29 L (30-135) U/L Troponin I < 0.012 (0.01-0.034) ng/mL NT-Pro-B Natriuret Pep 56 (<125) pg/mL Total Protein 7.7 (6.3-8.2) g/dL Albumin 4.3 (3.5-5.0) g/dL Globulin 3.4 (1.7-4.1) g/dL Albumin/Globulin Ratio 1.3 (1.0-2.8) Lipase 102 (23-300) U/L MDM Narrative Medical decision making narrative: CC: Tightness squeezing sensation over the head an upper chest when she stands up ongoing for the last month Complicating co-morbidities: On Pegasys for her thrombocytosis, recent NSTEMI Data collected from: patient Medical records reviewed: ER notes with NSTEMI reviewed from August Differential considered: Upper respiratory infection, orthostasis, medication side effect Exam documented above, pertinent findings include: Exam is actually quite benign. She is not orthostatic. Lab Test results independently reviewed as above. Pertinent findings: CBC is reassuring with white blood cells at 4.7, mild anemia at 11.4 and 32.9. Platelets are actually in the normal range at 230 which is significantly lower than they been on previous studies Chemistries show AST and ALT are minimally elevated. Creatinine is appropriate Troponin is not detectable Independently reviewed EKG: Sinus rhythm at a rate of 93. No acute ischemic changes Imaging studies independently reviewed: Chest x-ray is unremarkable Discussion: 64-year-old woman presents complaining of tightness throughout her head and upper chest when she stands up new finding over the last month very concerning for her and very different than her usual baseline. Workup for cardiac symptoms, infectious etiology or other obvious explanations is negative in the emergency department. Reassurance is given. I did suggest she discuss her findings with her oncologist. At this point she has not oncologist and subject scientific research but no primary care physician. I also strongly encouraged her to consider establishing care with an internal medicine physician to help with overall care coordination. There was no indication for additional imaging or hospitalization at this time questions are answered she is safe for discharge Discharge Plan Departure Patient Disposition: Home Clinical Impression: Feeling of chest tightness Activity Restrictions/Additional Instructions: Thank you for coming in today Your symptoms do sound significantly frustrating. From the emergency department, there are many things I can tell you you do not have for example you do not have a significant infection, evidence of sepsis, heart attack or heart attack like syndrome, blood pressure that is too elevated, evidence of abnormal chest x-ray or infection in your lungs. Your CBC actually looks almost normal with platelet level at 230.. At this time, I do not have an explanation for your symptoms however I do not find any life-threatening abnormalities I would recommend that you follow up with your oncology physicians. In terms of routine care and maintenance, I would also recommend finding an internal medicine physician to establish with for basic primary and coordination of care. If you find that you are getting worse or develop any new symptoms, please feel free to return to the emergency department for further evaluation. Prescriptions: No Action methylphenidate HCl 27 mg tablet extended release 24hr 27 mg PO Patient Comments: TAKE ONE TABLET BY MOUTH EVERY MORNING hydroxyurea 500 mg capsule 500 mg PO tizanidine 4 mg tablet 4 mg PO Patient Comments: TAKE ONE TABLET BY MOUTH NIGHTLY AT BEDTIME trazodone 50 mg tablet 50 mg PO Patient Comments: TAKE ONE TABLET BY MOUTH NIGHTLY AT BEDTIME desonide 0.05 % ointment 1 applic topical Patient Comments: APPLY TO LIPS TWO TIMES DAILY FOR TWO WEEKS NEEDED. levothyroxine 50 mcg tablet 50 mcg PO Patient Comments: TAKE ONE TABLET BY MOUTH ONE TIME DAILY 30 MINS PROIR TO EATING fluoxetine 10 mg capsule 10 mg PO Patient Comments: TAKE TWO TO THREE CAPSULES BY MOUTH ONE TIME DAILY propranolol 10 mg tablet 20 mg PO Referrals: Miscellaneous,Doctor, MD [Primary Care Provider] - Stand Alone Forms: Patient Portal/API
[2024-04-23 15:37] VITALS: BP 129/62; PULSE 83; RESP 14; O2SAT 93
== END 2024-04-23 15:40 | disposition home or self-care (01) ==
PROVIDERS: Emergency Provider Emergency Medicine; Family Provider Internal Medicine Hematology & Oncology
DX: R07.89 Other chest pain (principal); R51.9 Headache, unspecified; I25.2 Old myocardial infarction; Z87.891 Personal history of nicotine dependence
CPT/HCPCS: 36415; 71045; 80053; 82550; 83690; 83735; 83880; 84484; 85025; 85610; 85730; 93005; 93010; 99284

== ENCOUNTER → 2024-06-23 14:16 | Outpatient (CLI) | payer OTHER, MEDICARE, SELFPAY ==
--- NOTE | 2024-06-23 14:18 | DI.RAD.S_ITS ---
PROCEDURE: XR DEXA AXIAL SKELETON INDICATIONS: Routine screening COMPARISON: None. FINDINGS: Lumbar Spine: Bone mineral density 1.004 g/cm2, T score -0.4. Left Hip: Bone mineral density 0.972 g/cm2, T score 0.2. Left Femoral Neck: Bone mineral density 0.855 g/cm2, T score 0.1. Right Hip: Bone mineral density 0.955 g/cm2, T score 0.1. Right Femoral Neck: Bone mineral density 0.847 g/cm2, T score 0.00. Fracture Risk Calculation (when applicable): 10-year fracture risk of a major osteoporotic fracture 6.8 percent and of a hip fracture 0.2 percent. (T score greater or equal to -1.0 to: NORMAL) (T score from -1.1 to -2.4: OSTEOPENIA) (T score less than or equal to -2.5: OSTEOPOROSIS) IMPRESSION: Normal bone mineral density. Follow-up guidelines as follows: Osteoporosis: Consider a repeat DEXA and Vertebral Fracture Assessment (VFA) exam in 2 years or sooner if medically necessary, to reassess this patient's status. Osteopenia: Consider a repeat DEXA in 2-3 years to reassess this patient's status, or if there is a new clinical indication. Normal: Consider a repeat DEXA in 5 years or sooner, or if there is a new clinical indication. All treatment decisions require clinical judgment and consideration of individual patient factors, including patient preferences, comorbidities, previous drug use, risk factors not captured in the FRAX model (e.g., frailty, falls, vitamin D deficiency, increased bone turnover, interval significant decline in bone density ) and possible under- or over-estimation of fracture risk by FRAX. In addition, the NOF Guide recommends that FDA-approved medical therapies be considered in postmenopausal women and men age >= 50 years with a: * Hip or vertebral (clinical or morphometric) fracture * T-score of <=-2.5 at the spine or hip * Ten-year fracture probability by FRAX of >= 3% for hip fracture or >=20% for major osteoporotic fracture. People with diagnosed cases of osteoporosis or at high risk for fracture should have regular bone mineral density tests. For patients eligible for Medicare, routine testing is allowed once every 2 years. The testing frequency can be increased to one year for patients who have rapidly progressing disease, those who are receiving or discontinuing medical therapy to restore bone mass, or have additional risk factors. Dictated by: Jose Hale M.D. on 06/23/2024 at 16:51 Approved by: Jose Hale M.D. on 06/23/2024 at 16:52
--- NOTE | 2024-06-23 14:18 | DI.MG.S_ITS ---
BILATERAL DIGITAL SCREENING MAMMOGRAM 3D/2D WITH CAD: 06/23/2024 CLINICAL: Routine screening. Comparison is made to exams dated: 07/27/2022 mammogram, 04/22/2018 mammogram, and 11/25/2015 mammogram - [facility]. The breasts are heterogeneously dense, which may obscure small masses (category c / 51-75% glandular tissue). Current study was also evaluated with a Computer Aided Detection (CAD) system. There is a biopsy clip in the left breast. No significant masses, calcifications, or other findings are seen in either breast. There has been no significant interval change. IMPRESSION: NEGATIVE There is no mammographic evidence of malignancy. A 1 year screening mammogram is recommended. Based on the Tyrer Cuzick model (a risk assessment model) the patient's lifetime risk is 9.3% and her 10 year risk is 4.5%. According to the ACR, ACS, and NCCN guidelines, an annual breast MRI exam along with mammogram is recommended if the patient's lifetime risk is 20% or greater. This exam was interpreted at Station ID: [id number]. NOTE: For mammograms, a report in lay terms will be sent to the patient. Approximately 15% of breast malignancies will not be visualized mammographically. In the management of a palpable breast mass, a negative mammogram must not discourage biopsy of a clinically suspicious lesion. Electronically Signed By: Kane mayo/edd:06/25/2024 06:28:47 letter sent: Normal Exam ACR BI-RADS Category 1: Negative
== END ==
LOC: MAMMO 14:18
PROVIDERS: Family Provider Internal Medicine Hematology & Oncology; PCP Family Medicine; Referring Provider Family Medicine; Visit Provider Family Medicine
DX: Z12.31 Encounter for screening mammogram for malignant neoplasm of breast (principal); R92.333 Mammographic heterogeneous density, bilateral breasts; Z13.820 Encounter for screening for osteoporosis; Z78.0 Asymptomatic menopausal state
CPT/HCPCS: 77063; 77067; 77080

== ENCOUNTER → 2024-09-20 08:40 | Outpatient (CLI) | payer OTHER, SELFPAY ==
[2024-09-20 09:56] LABS: Cholesterol 150 mg/dL (140-199); HDL Cholesterol 47 mg/dL (40-60); LDL Cholesterol Calculated 76 mg/dL (<100); Triglycerides 135 mg/dL (35-150)
[2024-09-20 10:29] LABS: TSH w/ Reflex to FT4 3.81 uIU/mL (0.47-4.68)
[2024-09-20 10:31] LABS: Creatinine Urine Random 86.15 mg/dL
[2024-09-20 10:40] LABS: Microalbumin Urine Random < 0.6 mg/dL (0-1.6)
[2024-09-20 11:04] LABS: Folate 11.2 ng/mL (2.76-20.0); Vitamin B12 558 pg/mL (239-931)
== END ==
LOC: LAB 08:42
PROVIDERS: Family Provider Internal Medicine Hematology & Oncology; PCP Family Medicine; Referring Provider Family Medicine; Visit Provider Family Medicine
DX: E53.8 Deficiency of other specified B group vitamins (principal); R20.8 Other disturbances of skin sensation; R80.9 Proteinuria, unspecified; E78.00 Pure hypercholesterolemia, unspecified; E03.9 Hypothyroidism, unspecified
CPT/HCPCS: 36415; 80061; 82043; 82570; 82607; 82746; 84443

== ENCOUNTER → 2025-07-13 08:27 | Outpatient (CLI) | payer MEDICARE, OTHER, SELFPAY ==
--- NOTE | 2025-07-13 08:28 | DI.NM.S_ITS ---
PROCEDURE: NM EXERCISE TREADMILL NON NUC COMPARISON: None INDICATIONS: Hx of AL (2023) stent placement; chronic SOB FINDINGS: Rest ECG sinus rhythm 75 bpm. Hoang protocol 4:42, maximum heart rate 128 bpm (83% peak predicted), peak blood pressure 180/70, 7.0 METS, ANGELIC +24%. Exercise ECG sinus tachycardia, no obvious ST segment changes however significant artifact noted at peak exercise and in early recovery limits interpretation. Rare PVCs. The patient did not report exercise-induced chest discomfort however was observed to have severe dyspnea on exertion. SpO2 with exercise 93%. IMPRESSION: Equivocal study. No obvious exercise-induced ECG changes however interpretation is limited due to artifact. Normal heart rate and blood pressure response. Severe dyspnea on exertion. Reduced exercise capacity. Dictated by: Rocio Anguiano D.O. on 07/13/2025 at 17:00 Approved by: Rocio Anguiano D.O. on 07/13/2025 at 17:03
== END ==
LOC: NUCM 08:28
PROVIDERS: Family Provider Internal Medicine Hematology & Oncology; PCP Family Medicine; Referring Provider Family Medicine; Visit Provider Internal Medicine
DX: I25.10 Atherosclerotic heart disease of native coronary artery without angina pectoris (principal); I25.2 Old myocardial infarction; I10 Essential (primary) hypertension; G47.33 Obstructive sleep apnea (adult) (pediatric); R06.02 Shortness of breath; Z95.5 Presence of coronary angioplasty implant and graft
CPT/HCPCS: 93017

== ENCOUNTER → 2025-07-17 12:40 | Outpatient (CLI) | payer MEDICARE, OTHER, SELFPAY ==
--- NOTE | 2025-07-17 12:42 | DI.ECHO.S_ITS ---
[facility] : : [address] : : [place] : : [id number] : : Phone: [phone] Echocardiogram Report + + :Name: GRAHAM SANTOS Study Date: 07/17/2025 Height: 65 in : :[facility] ReadingLocation: Weight: 175 lb : : Gender: Female BSA: 1.9 m2 : :: 1960 Age: 65 yrs BP: 148/79 mmHg: :Reason For Study: History of [place] : :Ordering Physician: MARIA ISABEL, : :LOKI Performed By: Siddhartha Chandra : :Referring: Conrad Hale MD : + + Interpretation Summary - The left ventricular contractility is hyperdynamic. Estimated ejection fraction is greater than 70% with no segmental wall motion abnormalities. Borderline concentric LVH. Normal diastolic function. - The right ventricular contractility is normal. - All cardiac chambers are of normal size. - No significant valvular abnormalities. - No obvious intracardiac shunts. - No obvious intracardiac masses nor thrombi. - No hemodynamically significant pericardial effusion. - Low right-sided filling pressures. Conclusion: Hyperdynamic left ventricular systolic function with no significant valvular abnormalities. Procedure: A two-dimensional transthoracic echocardiogram with color flow and Doppler was performed. The study quality was technically adequate. The patient had an echocardiogram, but there is no comparison study available. The patient was in normal sinus rhythm during the exam. Left Ventricle: The left ventricle is normal in size. Left ventricular wall thickness is borderline increased. The ejection fraction is estimated to be 70-75%. There are no focal wall motion abnormalities. Normal diastolic function. Right Ventricle: The right ventricle is normal in size and function. Atria: The left atrial size is normal. Right atrial size is normal. There is no Doppler evidence for an interatrial shunt. Mitral Valve: The mitral valve leaflets appear to open well. There is no mitral valve stenosis. There is trace mitral regurgitation. Aortic Valve: The aortic valve is trileaflet. The aortic valve opens well. There is no aortic valve stenosis. No aortic regurgitation is present. Tricuspid Valve: The tricuspid valve is not well visualized, but is grossly normal. There is trace tricuspid regurgitation. The right ventricular systolic pressure is estimated to be at least 29 mmHg based on an estimated right atrial pressure of 3 mm Hg. Pulmonic Valve: The pulmonic valve is not well seen, but is grossly normal. There is trace pulmonic regurgitation. Great Vessels: The aortic root is normal size. The ascending aorta is normal in size. The aortic arch could not be visualized. The pulmonary artery is normal size. The IVC is of normal diameter and collapses greater than 50% with a sniff. This suggests a low right atrial pressure of 3 mm Hg. Pericardium/ Pleura There is no pericardial effusion. MMode/2D Measurements & Calculations LVIDd: 4.6 cm LVOT diam: 2.0 cm LVIDs: 2.9 cm Ao root diam: 3.1 cm FS: 37.5 % asc Aorta Diam: 3.5 cm IVSd: 1.1 cm LVPWd: 1.1 cm LV wilkes. diameter/BSA (cm/m^2): 2.5 LV sys. diameter/BSA (cm/m^2): 1.5 LA A2 area: 16.0 cm2 RA long axis: 4.3 cm LA A4 area: 17.5 cm2 RA area: 10.4 cm2 LA length (vol): 4.9 cm RA vol: 21.7 ml LA vol: 48.4 ml RA : 11.6 ml/m2 LA vol index: 25.9 ml/m2 IVC diam: 1.7 cm RVD1 (basal): 2.8 cm RVD2 (mid): 1.9 cm TAPSE: 1.8 cm Doppler Measurements & Calculations Ao V2 max: 114.8 cm/sec LVOT Max Marv: 98.0 cm/sec Ao V2 mean: 88.8 cm/sec LV V1 max P.8 mmHg Ao max P.3 mmHg LV V1 VTI: 19.3 cm Ao mean P.4 mmHg SHANE(I,D): 2.6 cm2 Ao V2 VTI: 22.6 cm SHANE(V,D): 2.6 cm2 sev ratio: 0.86 SHANE indexed to BSA (cm^2/m^2): 1.4 MV E max marv: 65.7 cm/sec TR max marv: 256.0 cm/sec MV A max marv: 88.0 cm/sec TR max P.3 mmHg MV E/A: 0.75 PA V2 max: 99.2 cm/sec Med Peak E' Marv: 7.6 cm/sec PA V2 mean: 67.5 cm/sec E/E' med: 8.6 PA mean P.1 mmHg Lat Peak E' Marv: 9.1 cm/sec PA pr(Accel): 14.8 mmHg E/E' lat: 7.2 E/e' average: 7.9 MV dec time: 0.17 sec SV(LVOT): 59.5 ml Qp/Qs (V,Ao): 1.0/4.9 Qp/Qs (V,LVOT): 1.0/1.7 Reading Physician:ROYCE
== END ==
LOC: ECHO 12:41
PROVIDERS: Family Provider Internal Medicine Hematology & Oncology; PCP Family Medicine; Referring Provider Family Medicine; Visit Provider Internal Medicine
DX: I25.10 Atherosclerotic heart disease of native coronary artery without angina pectoris (principal); I25.2 Old myocardial infarction; E03.9 Hypothyroidism, unspecified; G47.33 Obstructive sleep apnea (adult) (pediatric); D47.3 Essential (hemorrhagic) thrombocythemia; R06.02 Shortness of breath; Z95.5 Presence of coronary angioplasty implant and graft
CPT/HCPCS: 93306